=== PATIENT | female | born 1960 | race Caucasian/White ===

== ENCOUNTER → 2018-07-20 15:57 | Outpatient (CLI) | payer OTHER, SELFPAY ==
[2018-07-20 18:56] LABS: Absolute Lymphocyte Count 2.12 X10^3/ul (0.83-4.51); Absolute Neutrophil Count 6.2 X10^3/uL (2.0-7.7); Basophil# 0.04 X10^3/uL; Basophil% 0.4 % (0-1); Eosinophil# 0.18 X10^3/uL; Eosinophils% 1.9 % (0-5); Hematocrit 43.4 % (37-47); Lymphocyte # 2.12 X10^3/ul (4.0); Lymphocyte % 22.5 % (19-41); Mean Corp Hgb Conc 32.3 g/gl (32-36); Mean Corpuscular Hgb 29.5 pg (27.0-32.0); Mean Corpuscular Volume 91.4 fL (81-99); Monocyte# 0.89 X10^3/uL; Monocyte% 9.4 % (0-10); Neutrophil # 6.19 X10^3/uL (2.7-7.7); Neutrophil % 65.7 % (47-70); Platelet Count 233 K/mm3 (150-450); RBC Distribution Width SD 43.3 fl (35.1-43.9); Red Blood Count 4.75 M/mm3 (4.2-5.4); White Blood Count 9.4 K/mm3 (4.4-11.0)
[2018-07-20 19:08] LABS: Erythrocyte Sedimentation Rate 21 mm/hr (0-30); POSITIVE COUNT NO; POSITIVE DIFFERENTIAL NO; POSITIVE MORPHOLOGY NO
== END ==
PROVIDERS: Family Provider Family Medicine; PCP Family Medicine; Visit Provider Physician Assistant
DX: M17.11 Unilateral primary osteoarthritis, right knee (principal)
CPT/HCPCS: 36415; 85025; 85652; 86140

== ENCOUNTER → 2019-04-05 16:09 | Outpatient (CLI) | payer OTHER, SELFPAY ==
--- NOTE | 2019-04-05 16:14 | EKG12_ITS ---
Test Reason : PRE-OP Blood Pressure : / mmHG Vent. Rate : 095 BPM Atrial Rate : 095 BPM P-R Int : 154 ms QRS Dur : 082 ms QT Int : 340 ms P-R-T Axes : 056 -34 061 degrees QTc Int : 427 ms Normal sinus rhythm Possible Left atrial enlargement Left axis deviation Abnormal ECG Confirmed by ETHEL MCKAY ([id number]), art editor LANI GALLARDO ([id number]) on 04/09/2019 2:02:53 PM Referred By: Orly Lacey Confirmed By:ETHEL MCKAY
--- NOTE | 2019-04-05 16:29 | RAD_ITS ---
STUDY: X-RAY CHEST REASON FOR EXAM: Female, 59 years old. Preoperative TECHNIQUE: PA and lateral views the chest COMPARISON: None. FINDINGS: The lungs are clear. There is a left lower lobe granuloma. There are no pleural effusions. There is no pneumothorax. The heart is normal in size. The visualized osseous structures are within normal limits. RAD/Chest PA and Lateral IMPRESSION: No acute thoracic pathology. Left lower lobe granuloma. Electronically Signed: Caio Barba, at 16:57 EDT Tel , Service support ,
== END ==
PROVIDERS: Family Provider Family Medicine; PCP Family Medicine; Referring Provider Physician Assistant; Visit Provider Physician Assistant
DX: Z01.818 Encounter for other preprocedural examination (principal)
CPT/HCPCS: 71046; 93005

== ENCOUNTER → 2019-04-24 | Outpatient (CLI) | payer OTHER, SELFPAY ==
--- NOTE | 2019-04-24 13:44 | STEWCON_ITS ---
Reason For Study: PRE OP, ABN EKG Stress Results Protocol: Florian Protocol WITH DEFINITY Maximum Predicted HR: 161 bpm Target HR: 137 bpm % Maximum Predicted HR: 98 % DurationHeart Rate Stage (mm:ss) (bpm) BP Comment BASELINE 94 132/822.5 CC DEFINITY STAGE 1 3:00 127 160/88 STAGE 2 3:00 153 172/881 CC DEFINITY STAGE 3 0:15 157 / RECOVERY 97 126/783 CC DEFINITY Stress Duration: 6:15 mm:ss Maximum Stress HR: 157 bpm METS: 7 Baseline Echocardiogram Findings Stress Echo Wall motion Data Resting WM Intermediate WM Stress WM Resting Wall Motion Wall Motion Stress All segments Normal. All segments Hyperkinetic. Ejection Fraction 60 %. Ejection Fraction 70 %. Stress Results Heart rate response: Appropriate Blood pressure response to exercise: Normal resting BP-appropriate response Arrhythmias: Occasional PVC pretest, during exercise, and recovery Functional capacity: Average Stopped secondary to: Fear of falling. EKG Data The baseline ECG displays normal sinus rhythm. Exercise ECG: No obvious ECG changes. Symptoms with Stress No complaint of chest discomfort during exercise or recovery. Interpretation Summary Technically difficult study Contrast enhancement performed Negative (Adequate) Stress Echocardiogram Ordering Physician: Sasha^Fide^^^ Referring Physician: Fide Baez Performed By: Genevieve Blackmon, BERT
== END | disposition home or self-care (01) ==
LOC: CVS 13:43
PROVIDERS: Family Provider Family Medicine; PCP Family Medicine; Referring Provider Family Medicine; Visit Provider Family Medicine
DX: Z01.818 Encounter for other preprocedural examination (principal); R94.31 Abnormal electrocardiogram [ECG] [EKG]
CPT/HCPCS: 93017; 93350; Q9957; A4216; C8928

== ENCOUNTER → 2019-04-25 | Outpatient (CLI) | payer OTHER, SELFPAY ==
[2019-04-25 13:04] LABS: Absolute Lymphocyte Count 1.82 X10^3/ul (0.83-4.51); Absolute Neutrophil Count 4.2 X10^3/uL (2.0-7.7); Basophil# 0.03 X10^3/uL; Basophil% 0.4 % (0-1); Eosinophil# 0.17 X10^3/uL; Eosinophils% 2.4 % (0-5); Hematocrit 42.6 % (37-47); Hemoglobin 14.2 g/dl (12.0-15.0); Lymphocyte # 1.82 X10^3/ul (4.0); Lymphocyte % 25.7 % (19-41); Mean Corp Hgb Conc 33.3 g/gl (32-36); Mean Corpuscular Hgb 29.6 pg (27.0-32.0); Mean Corpuscular Volume 88.8 fL (81-99); Mean Platelet Vol. 10.2 fl (6.2-12.0); Monocyte# 0.83 X10^3/uL; Monocyte% 11.7 % (0-10); Neutrophil # 4.22 X10^3/uL (2.7-7.7); Neutrophil % 59.5 % (47-70); Platelet Count 225 K/mm3 (150-450); RBC Distribution Width SD 41.9 fl (35.1-43.9); White Blood Count 7.1 K/mm3 (4.4-11.0)
[2019-04-25 13:05] LABS: POSITIVE COUNT NO; POSITIVE DIFFERENTIAL NO; POSITIVE MORPHOLOGY NO
[2019-04-25 13:29] LABS: Vitamin B12 417 pg/mL (211-911)
[2019-04-25 13:39] LABS: Anion Gap 10 (5-15); BUN 18 mg/dL (7-18); BUN/Creat Ratio 25.5 RATIO (10-20); Calcium,Total 8.9 mg/dL (8.5-10.1); Chloride 106 mmol/L (98-107); EST Glomerular Filtration Rate 90 mL/min (>60); Est Glom Filt Rate - Afr Amer 109 mL/min (>60); Glucose 81 mg/dL (74-106); Potassium 3.7 mmol/L (3.5-5.1); Sodium Level 140 mmol/L (136-145); T4 Free Direct 1.21 ng/dL (0.76-1.46); Thyroid Stim Hormone (TSH) 1.44 uIU/mL (0.358-3.74)
== END | disposition home or self-care (01) ==
LOC: BFHLAB 10:20
PROVIDERS: Family Provider Family Medicine; PCP Family Medicine; Visit Provider Family Medicine
DX: Z01.818 Encounter for other preprocedural examination (principal); R41.3 Other amnesia
CPT/HCPCS: 36415; 80048; 82607; 84439; 84443; 85025

== ENCOUNTER → 2019-05-23 | Outpatient (CLI) | payer OTHER, SELFPAY | END | disposition home or self-care (01) | LOC: LABSPEC 15:46 | PROVIDERS: Family Provider Family Medicine; PCP Family Medicine; Referring Provider Otolaryngology Otolaryngology/Facial Plastic Surgery; Visit Provider Otolaryngology Otolaryngology/Facial Plastic Surgery | DX: J02.9 Acute pharyngitis, unspecified (principal) | CPT/HCPCS: 87070 ==

== ENCOUNTER → 2019-06-08 | Outpatient (CLI) | payer OTHER, SELFPAY ==
[2019-06-08 17:32] LABS: Hematocrit 42.7 % (37-47); Hemoglobin 14.3 g/dl (12.0-15.0); Mean Corp Hgb Conc 33.5 g/gl (32-36); Mean Corpuscular Volume 89.5 fL (81-99); Mean Platelet Vol. 10.5 fl (6.2-12.0); Platelet Count 228 K/mm3 (150-450); RBC Distribution Width SD 42.3 fl (35.1-43.9); Red Blood Count 4.77 M/mm3 (4.2-5.4); White Blood Count 9.4 K/mm3 (4.4-11.0)
[2019-06-08 17:33] LABS: Scan Indicated on CBC? Y/N NO
[2019-06-08 18:17] LABS: Anion Gap 5 (5-15); BUN 18 mg/dL (7-18); BUN/Creat Ratio 22.3 RATIO (10-20); Calcium,Total 9.1 mg/dL (8.5-10.1); Chloride 107 mmol/L (98-107); Creatinine, Serum 0.81 mg/dL (0.55-1.02); EST Glomerular Filtration Rate 77 mL/min (>60); Est Glom Filt Rate - Afr Amer 93 mL/min (>60); Glucose 91 mg/dL (74-106); Potassium 4.2 mmol/L (3.5-5.1); Sodium Level 140 mmol/L (136-145)
== END | disposition home or self-care (01) ==
LOC: LAB 16:39
PROVIDERS: Family Provider Family Medicine; PCP Family Medicine; Referring Provider Physician Assistant; Visit Provider Physician Assistant
DX: Z01.818 Encounter for other preprocedural examination (principal)
CPT/HCPCS: 36415; 80048; 85027

== ENCOUNTER → 2019-06-15 | Outpatient (CLI) | payer OTHER, SELFPAY ==
--- NOTE | 2019-06-15 | KNEE_PTH ---
PATIENT: SHAUN TIRADO [facility] U#:[id number] AGE/SX: 59/F ROOM: RE06/15/[address]: Dr. Jarvis Soni MD : 1960 BED: DIS: 06/15/2019 SPEC #: [id number] RECD: 06/15/19 15:22 STATUS: VIANCA REMarcell #: [id number] KEYANA: 06/15/19 00:[address]: Jarvis Soni DEPT: SURGICAL PATHOLOGY RECD BY: Darien Villafuerte ENTERED: 06/18/19 08:03 SP TYPE: TOTAL KNEE OTHR DR: Dr. Marino Vital MD [facility] Tissues: Knee, NOS Procedures: Decalcification bone/plaque Surgery Specimen Level IV HEADER OPERATION: Right knee total arthroplasty PRE-OP DIAGNOSIS: Posttraumatic arthritis right knee TISSUE SUBMITTED: Right knee bone MICROSCOPIC DIAGNOSIS Right knee bone, total knee arthroplasty: Pieces of bone with degenerative osteoarthritic changes. Fragments of fibrocartilage and reactive synovial tissue. ADWOA:cally 06/21/19 MICROSCOPIC DESCRIPTION Slides are reviewed. GROSS DESCRIPTION Received is one container designated bone right knee. The specimen consists of multiple fragments of guillaume-yellow bone measuring in aggregate 11 x 10 x 3.5 cm. Two indurated pieces of cartilaginous tissue are noted measuring in aggregate 6 x 2.5 x 1 cm. A number of bony fragments contain articular surfaces consistent with tibial plateau and femoral condyle and displaying prominent osteophyte formation, eburnation, and bone erosion. Self Propelled Hot Mix Roller Operator sections are submitted in two cassettes as follows: 1 - indurated piece of tissue, 2 - bone after decalcification. / ADWOA:cally 06/18/19 TC:5 [facility]: [id number], [id number]
== END | disposition home or self-care (01) ==
LOC: LABSPEC 15:50
PROVIDERS: Family Provider Family Medicine; PCP Family Medicine; Referring Provider Orthopaedic Surgery; Visit Provider Orthopaedic Surgery
DX: M17.31 Unilateral post-traumatic osteoarthritis, right knee (principal)
CPT/HCPCS: 88305; 88311

== ENCOUNTER → 2021-03-03 10:43 | Outpatient (CLI) | payer OTHER, SELFPAY ==
[2021-03-03 10:14] VITALS: BMI 34.0
--- NOTE | 2021-03-03 10:45 | BI_ITS ---
MAMMOGRAPHY - BILATERAL SCREENING 3-D TOMOSYNTHESIS REASON FOR EXAM: Female, 61 years old. Routine screening PERTINENT HISTORY: No significant family history. TECHNIQUE: 2-D mammograms and 3-D Tomosynthesis of the breast (s) were performed. CAD was performed. COMPARISON: 10/14/2017 FINDINGS: The breast composition is heterogeneously dense that can obscure small breast masses. Scattered benign calcifications are seen. No dense spiculated masses or suspicious microcalcifications are identified. No architectural distortion is identified. There is no skin thickening or retraction. There has been no significant change since the prior study. BI/SCRN MAMM (CAD)W/GISELLE BILAT IMPRESSION: No mammographic signs of malignancy. Routine yearly mammograms recommended. ASSESSMENT CATEGORY: BIRADS Category 2: Benign. A letter regarding these results will be sent to the patient by the facility within 30 days. FOLLOW UP RECOMMENDATION: Yearly follow up mammogram recommended. (A) Approximately 10% of breast cancers are not detected by mammography. A normal mammogram should not delay biopsy of a clinically suspicious abnormality. Electronically Signed: Lizandro Saba MD at 12:04 EDT , Service support ,
[2021-03-07 08:59] LABS: HPV APTIMA, High Risk Negative (Negative)
== END ==
PROVIDERS: PCP Family Medicine; Referring Provider Nurse Practitioner Women's Health; Visit Provider Nurse Practitioner Women's Health
DX: Z12.31 Encounter for screening mammogram for malignant neoplasm of breast (principal); Z12.4 Encounter for screening for malignant neoplasm of cervix
CPT/HCPCS: 77063; 77067; 87624; 88175; G0145

== ENCOUNTER → 2021-04-21 15:08 | Outpatient (CLI) | payer OTHER, SELFPAY ==
[2021-03-03 10:14] VITALS: BMI 34.0
[2021-04-20 16:25] LABS: Creatinine, Serum 0.77 mg/dL (0.55-1.02); EST Glomerular Filtration Rate 81 mL/min (>60); Est Glom Filt Rate - Afr Amer 98 mL/min (>60)
--- NOTE | 2021-04-21 15:38 | EKG12_ITS ---
Test Reason : PREOP Blood Pressure : / mmHG Vent. Rate : 094 BPM Atrial Rate : 094 BPM P-R Int : 150 ms QRS Dur : 082 ms QT Int : 338 ms P-R-T Axes : 048 -28 050 degrees QTc Int : 422 ms Normal sinus rhythm Poor R wave progression Nonspecific T wave abnormality Confirmed by NICOLE GONZALES, SHADE ([id number]), newspaper or periodical editor LANI GALLARDO ([id number]) on 04/22/2021 9:34:12 AM Referred By: Donnie Silverman Confirmed By:SHADE RIVERA MD
--- NOTE | 2021-04-21 15:40 | CT_ITS ---
STUDY: LEFT LOWER EXTREMITY CT SCAN REASON FOR EXAM: Female, 61 years old. VARUS DEFORMITY RADIATION DOSAGE (If Supplied By Facility): CTDIvol = ( 18.73 ) mGy, DLP = ( 1221.33 ) mGycm. Individualized dose optimization techniques were used for this CT.? TECHNIQUE: Axial multidetector CT scan of the left lower extremity. Coronal and sagittal reformatted images. COMPARISON: None. FINDINGS: Left hip: Mild left hip osteoarthritis with mild/moderate productive changes. Mild pubic symphysis arthrosis. Spurring at the greater trochanter. Colonic diverticulosis. Otherwise normal visualized intra-abdominal/pelvic contents. No acute fracture, dislocation or osseous destruction. Left knee: Severe medial compartment arthrosis. Mild lateral compartment arthrosis. Moderate patellofemoral arthrosis. Moderate volume joint effusion. Small popliteal cyst. Mild swelling. No acute fracture, dislocation or osseous destruction. Left ankle: Plantar spur. Achilles enthesophyte. Mild left ankle osteoarthritis. No acute fracture, dislocation or osseous destruction. CT/Extremity Lower without Contra IMPRESSION: Left knee tricompartmental osteoarthritis predominating medially Left knee moderate volume joint effusion, small popliteal cyst and mild swelling Mild left hip and ankle osteoarthritis Electronically Signed: Ramirez Acharya DO at 9:18 EDT Tel , Service support ,
[2021-04-21 15:48] LABS: Absolute Neutrophil Count 4.3 X10^3/uL (2.0-7.7); Basophil# 0.07 X10^3/uL; Basophil% 0.8 % (0-1); Eosinophil# 0.31 X10^3/uL; Eosinophils% 3.7 % (0-5); Hematocrit 42.4 % (37-47); Lymphocyte % 32.5 % (19-41); Mean Corpuscular Hgb 29.7 pg (27.0-32.0); Mean Platelet Vol. 10.1 fl (6.2-12.0); Monocyte# 0.94 X10^3/uL; Monocyte% 11.3 % (0-10); NRBC Flagged by Analyzer 0 % (0-5); Neutrophil # 4.26 X10^3/uL (2.7-7.7); Neutrophil % 51.3 % (47-70); Platelet Count 243 K/mm3 (150-450); RBC Distribution Width CV 12.3 % (11.6-14.6); RBC Distribution Width SD 40.5 fl (35.1-43.9); Red Blood Count 4.71 M/mm3 (4.2-5.4); White Blood Count 8.3 K/mm3 (4.4-11.0)
--- NOTE | 2021-04-21 15:50 | RAD_ITS ---
STUDY: X-RAY CHEST REASON FOR EXAM: Female, 61 years old. PRE OP TECHNIQUE: Frontal and lateral views COMPARISON: 04/15/2019. FINDINGS: The lungs are expanded. Stable left lower lobe parenchymal nodule likely granuloma. Normal size heart. Normal mediastinum and mauricio. Normal visualized pulmonary arteries. Normal visualized aortic arch and descending thoracic aorta. Degenerative changes of the thoracic spine. Normal visualized ribs, clavicles, and shoulders. There is no demonstrated abnormality of the visualized soft tissue structures of the upper abdomen. RAD/Chest PA and Lateral IMPRESSION: No acute pathology of the chest. Electronically Signed: Dominik Woodward DO at 16:05 EDT Tel [phone], Service support ,
[2021-04-21 16:52] LABS: Anion Gap 5 (5-15); BUN 23 mg/dL (7-18); Chloride 108 mmol/L (98-107); Creatinine, Serum 0.92 mg/dL (0.55-1.02); EST Glomerular Filtration Rate 66 mL/min (>60); Est Glom Filt Rate - Afr Amer 80 mL/min (>60); Glucose 136 mg/dL (74-106); Potassium 3.8 mmol/L (3.5-5.1); Sodium Level 139 mmol/L (136-145)
== END ==
PROVIDERS: PCP Family Medicine; Referring Provider Specialist; Visit Provider Specialist
DX: Z01.818 Encounter for other preprocedural examination (principal); M21.162 Varus deformity, not elsewhere classified, left knee
CPT/HCPCS: 36415; 71046; 73700; 80048; 82565; 85025; 93005

== ENCOUNTER 2021-05-22 16:51 | Observation (INO) | payer OTHER, SELFPAY ==
[2021-03-03 10:14] VITALS: BMI 34.0
[2021-05-22 16:28] VITALS: O2SAT 95; BMI 37.9
--- NOTE | 2021-05-22 16:51 | CT_ITS ---
STUDY: CTA CHEST REASON FOR EXAM: Female, 61 years old. sob s/p tka RADIATION DOSAGE (If Supplied By Facility): CTDIvol = ( 11.47 ) mGy, DLP = ( 488.01 ) mGycm TECHNIQUE: The examination was performed with the intravenous administration of IV 100mL Isovue-370. Post-processing of the angiographic images was performed, with multiplanar reformation and 3D reconstruction. Individualized dose optimization techniques were used for this CT. COMPARISON: None. FINDINGS: Normal enhancement of the main pulmonary artery and right and left pulmonary arteries. Normal enhancement of the bilateral peripheral pulmonary arteries. There is no demonstrated pulmonary embolism. Normal thoracic aorta and visualized great vessels. There is no demonstrated aortic dissection. Normal heart and pericardium. Normal mediastinum. Normal hilar regions. Normal visualized trachea and bronchi. The lungs are well expanded. Some dependent bibasilar atelectasis. Patchy groundglass opacities in the central upper lobes consistent with subsegmental atelectasis, pneumonitis, or pulmonary edema. 8 mm fat-containing nodule in the left lower lobe lungs on image 104 consistent with a pulmonary hamartoma. Normal pleura. Normal chest wall structures. Normal osseous structures. Normal visualized upper abdomen. CT/CTA Chest W/WO Contrast IMPRESSION: 1. No CT evidence of pulmonary embolism. 2. Bilateral subsegmental atelectasis, pneumonitis, pulmonary edema. Imaging features can be seen with Covid 19 pneumonia, though are nonspecific and can occur with a variety of infectious and noninfectious processes. Electronically Signed: Steve Marcelo MD at 18:44 EDT Tel , Service support ,
--- NOTE | 2021-05-22 16:52 | RAD_ITS ---
STUDY: X-RAY - LEFT KNEE REASON FOR EXAM: Female, 61 years old. post op -- AP and Lateral xray of operative knee in PACU TECHNIQUE: 2 view(s) of the knee. COMPARISON: 09/14/2017 FINDINGS: Normal visualized distal femur. Normal visualized proximal tibia and fibula. Normal proximal tibiofibular articulation. Status post recent total knee arthroplasty with skin marissa and subcutaneous emphysema.. The soft tissue structures are unremarkable. RAD/Knee 1 or 2 Views IMPRESSION: Status post recent total knee arthroplasty. Electronically Signed: Steve Marcelo MD at 18:57 EDT Tel , Service support ,
--- NOTE | 2021-05-22 16:54 | PCM.HP.STD ---
HPI - General General Date of Admission: 05/22/21 HPI Narrative SHAUN ROBERSON, is a 61 F who presents with decreased oxygen saturation and increased fevers status post left total knee replacement today. Patient was in otherwise healthy female who qualified for outpatient total knee replacement. Her total knee was done today at [facility]. There were no intraoperative complications with the surgery however towards the end of the procedure the patient did develop decreased oxygenation on her monitor. She also had some associated spasming as noted by anesthesia. She was monitored closely in the postoperative area. Her decreased oxygenation did somewhat resolve with albuterol and oxygen supplementation. However she was not able to obtain a satisfactory oxygenation level postoperatively. She also developed significant fevers postoperatively as high as 100.8. Based on this and anesthesia recommendation we have elected to admit her to the hospital. [facility] Medical History (Updated 05/22/21 @ 17:[address] Jb Banegas MD) Anxiety and depression delivery delivered Home Medications sertraline 100 mg tablet 100 mg PO DAILY 03/03/21 [History Last Taken Unknown] Allergy/AdvReac Type Severity Reaction Status Date / Time Sulfa (Sulfonamide Allergy Intermediate rash Verified 03/03/21 10:15 Antibiotics) Family History (Updated 03/03/21 @ 10:17 by Kely Reeder) Father Diabetes Heart disease Surgical History (Updated 05/22/21 @ 17:[address] 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 Otherwise 14 point review systems is negative.. Vital Signs Vital Signs Vital Signs: Weight Weight: 214 lb 2 oz Body Mass Index (BMI) 37.9 Physical Exam Narrative Patient is alert and oriented. Extremity Extremity Narrative: Left lower extremity: Dressing is clean dry and intact Sensations intact to light touch saphenous, sural, superficial peroneal, deep peroneal, and tibial distributions Motors intact EHL, DF, PF calves are soft and supple Assessment & Plan Assessment/Plan (1) Shortness of breath: PLAN: Based on patient's development of fevers and shortness of breath intraoperatively patient was transferred to the hospital for oxygen supplementation and to rule out a emboli. Knee replacement can be associated with fatty emboli as well as pulmonary emboli. We did not instrument her femoral or tibial canal however her symptoms warrant further investigation. CT angiogram was performed. Patient does not demonstrate emboli. She does have some pneumonitis and some atelectasis as well as fluid. Radiology states this could be consistent with some Covid pneumonia. She did have vaccination. Medicine is ordered Covid testing. We will follow this. She is doing well sitting up in her bed not requiring oxygen at this time. I have recommended we do overnight pulse ox monitoring consistently in order to evaluate her overnight. If she does well she will likely be able to be discharged tomorrow. (2) History of total knee arthroplasty: PLAN: Patient surgery went uneventfully. She will be monitored overnight. Will consult medicine. We will stick with standard postop pain regimen. We will begin physical therapy tomorrow.
--- NOTE | 2021-05-22 17:35 | EKG12_ITS ---
Test Reason : SHORTNESS OF BREATH Blood Pressure : / mmHG Vent. Rate : 104 BPM Atrial Rate : 104 BPM P-R Int : 132 ms QRS Dur : 088 ms QT Int : 314 ms P-R-T Axes : 015 -20 023 degrees QTc Int : 412 ms Sinus tachycardia Nonspecific T wave abnormality Abnormal ECG When compared with ECG of 21-APR-2021 15:44, No significant change was found Confirmed by AVINASH GONZALES, KETAN ([id number]), writer editor LANI GALLARDO ([id number]) on 05/26/2021 9:21:36 AM Referred By: MARCELINA Confirmed By:KETAN DA SILVA MD
[2021-05-22 17:46] LABS: CREATININE FINGERSTICK 0.8 mg/dL (0.55-1.02); EGFR FINGERSTICK > 60.0000 mL/min (>60)
--- NOTE | 2021-05-22 17:50 | PCM.PN.HOSP ---
Subjective Subjective This is a 61 years old female patient underwent elective left total knee replacement today and postoperatively, she was found to have hypoxia and her oxygen saturation decreased and also reportedly, she developed fever. I was asked to see the patient for medical management. Patient was seen and examined. Currently, she denies any chest pain or shortness of breath. She denied fever or chills. Her left knee pain is manageable. She has no past medical history apart from depression. Currently, hypertension stable, pulse ox is 95% on room air. Objective Data Objective Data Vital Signs: Vital Signs Pulse Ox 95 05/22/21 16:28 Oxygen Delivery Method Room Air Weight: 214 lb 2 oz Body Mass Index (BMI) 37.9 Lab / Micro Data Labs: Laboratory Results - last 24 hr 05/22/21 17:41 POC Creatinine 0.8 POC Estimated GFR (eGFR) > 60.0000 Physical Exam Const alert, oriented x3, no apparent distress and no limitations General Appearance: cooperative HEENT normocephalic, head/scalp atraumatic, external ears normal, external nose normal and moist oral mucous membranes Head and Scalp: normocephalic Eyes PERRL, EOMs intact bilaterally, conjunctivae normal and no scleral icterus General Eye: normal appearance of both eyes Neck no lymphadenopathy, supple, no meningeal signs, no JVD and no carotid bruits Lymph Lymphatic: no lymphadenopathy noted Resp normal respiratory effort, normal air movement and clear to auscultation bilaterally Auscultation: Negative for crackles, rales, rhonchi or wheezes Cardio regular rate, regular rhythm, S1 normal heart sound, S2 normal heart sound, no murmurs and no JVD GI normal to inspection, nondistended, normoactive bowel sounds, soft to palpation, non-tender and non-distended; Negative for hepatosplenomegaly Extremity normal to inspection, full ROM and no clubbing, cyanosis or edema Skin no rashes or lesions noted, no wounds and no petechiae Neuro oriented x3, CN's II-XII intact bilaterally and moves all extremities Sensorium / Orientation: alert Speech: speech normal Motor Exam: strength 5/5 throughout Psych mental status grossly normal, affect normal and denies hallucinations Assessment & Plan Assessment/Plan (1) Hypoxia: (2) Status post left knee replacement: (3) Depression: PLAN: This is a 61 years old female patient underwent elective left total knee replacement today and postoperatively, she did with hypoxia and reported fever and she was admitted for observation. #1 postoperative hypoxia/reported fever: Currently, patient is afebrile, pulse ox is 95% on room air. She denied any chest pain or shortness of breath. CTA chest was ordered and currently, it is being done. Plan: O2 by nasal cannula if needed, awaiting CTA chest results, EKG, incentive spirometer, gentle IV fluids after patient received IV contrast, repeat CBC and BMP tomorrow morning. #2 status post left total knee replacement: She is on IV cefazolin for perioperative prophylaxis, on IV morphine and OxyIR as needed for pain. Plan to start her on Xarelto for DVT (tomorrow. Orthopedic surgery on the case. #3 depression: Continue sertraline. #4 DVT prophylaxis: SCDs. This note was generated with [employer] dictation software. It may contain incorrect words, spelling, and punctuation that were not noted in checking the note before signing. Charges/Coding Visit Charges Inpatient E&M: 61189 Subs Hosp L2
[2021-05-22] MEDS: Ensure Surgery 237 ML LIQUID PO (17:58)
[2021-05-22] MEDS: 0.9% Normal Saline 1,000 ML 100 ML IV (18:04)
[2021-05-22 18:17] VITALS: BP 125/65; PULSE 100; RESP 16; TEMP 36.6; O2SAT 92
[2021-05-22] MEDS: Furosemide 20 MG/2 ML VIAL IV (19:11)
[2021-05-22 20:30] LABS: Probe Check PASS; Specimen Processing Control PASS
[2021-05-22 20:51] LABS: BNP,B-Type NATRIURETIC PEPTIDE 97.7 pg/mL (0-100)
[2021-05-22] MEDS: Senna/Docusate Sodium 1 Tablet 2 TABLET PO (21:04)
[2021-05-22] MEDS: oxyCODONE 5 MG Tablet PO (21:04)
[2021-05-22] MEDS: Cefazolin 1 GM/50 ML BAG IV (21:04)
[2021-05-22] MEDS: Acetaminophen 500 MG Tablet 1000 MG PO (21:05)
[2021-05-22 23:00] VITALS: BP 145/67; PULSE 98; RESP 18; TEMP 37.1; O2SAT 93
[2021-05-23 05:00] VITALS: BP 147/81; PULSE 94; RESP 16; TEMP 36.8; O2SAT 93
[2021-05-23] MEDS: Acetaminophen 500 MG Tablet 1000 MG PO (05:16)
[2021-05-23] MEDS: Cefazolin 1 GM/50 ML BAG IV (05:17)
[2021-05-23] MEDS: Rivaroxaban 10 MG Tablet PO (05:17)
[2021-05-23 06:19] LABS: Hemoglobin 12.4 g/dL (12.0-15.0); Mean Corp Hgb Conc 32.6 g/dL (32-36); Mean Corpuscular Hgb 30.2 pg (27.0-32.0); Mean Corpuscular Volume 92.7 fL (81-99); Mean Platelet Vol. 10.4 fl (6.2-12.0); Platelet Count 194 K/mm3 (150-450); RBC Distribution Width CV 13.1 % (11.6-14.6); RBC Distribution Width SD 44.6 fl (35.1-43.9); White Blood Count 14.1 K/mm3 (4.4-11.0)
[2021-05-23 06:59] LABS: Anion Gap 8 (5-15); BUN 18 mg/dL (7-18); BUN/Creat Ratio 22.6 RATIO (10-20); Chloride 108 mmol/L (98-107); EST Glomerular Filtration Rate 78 mL/min (>60); Est Glom Filt Rate - Afr Amer 94 mL/min (>60); Estimated Creatinine Clearance 61.09 ml/min; Glucose 122 mg/dL (74-106); Sodium Level 141 mmol/L (136-145)
[2021-05-23] MEDS: Ensure Surgery 237 ML LIQUID PO (08:09)
[2021-05-23] MEDS: Senna/Docusate Sodium 1 Tablet 2 TABLET PO (08:12)
[2021-05-23] MEDS: Famotidine 20 MG Tablet PO (08:12)
[2021-05-23] MEDS: Sertraline 100 MG Tablet PO (08:12)
[2021-05-23 08:16] VITALS: O2SAT 94
--- NOTE | 2021-05-23 09:50 | PCM.PN.HOSP ---
Subjective Subjective Doing well, has some pain in her left knee but otherwise breathing okay. She uses her incentive spirometer very well and I was able to ambulate her around the nursing unit and and she did not require any oxygen with ambulation. She denied any shortness of breath mostly her concern was her knee pain. I have encouraged her to continue with long walks as well as her incentive spirometer. Objective Data Objective Data Vital Signs: Vital Signs Temp Pulse Resp BP Pulse Ox 98.3 F 94 16 147/81 H 94 05/23/21 05:00 05/23/21 05:00 05/23/21 05:00 05/23/21 05:00 05/23/21 08:16 Oxygen Delivery Method Room Air Weight: 214 lb 1.983 oz Body Mass Index (BMI) 37.9 Intake & Output: Intake and Output for Last 24 Hours 05/22/21 05/23/21 05/24/21 03:59 03:59 03:59 Intake Total 150 / 150 650 / 650 Output Total 400 / 400 Balance -250 / -250 650 / 650 Lab / Micro Data Result Diagrams: 05/23/21 05:24 05/23/21 05:24 Labs: Laboratory Results - last 24 hr 05/22/21 05/22/21 05/22/21 17:41 19:10 20:16 WBC RBC Hgb Hct MCV MCH MCHC RDW Std Deviation RDW Coeff of Honey Plt Count MPV Sodium Potassium Chloride Carbon Dioxide Anion Gap BUN Creatinine POC Creatinine 0.8 Estim Creat Clear Calc POC Estimated GFR (eGFR) > 60.0000 Est GFR (MDRD) Af Amer Est GFR (MDRD) Non-Af BUN/Creatinine Ratio Glucose Calcium B-Natriuretic Peptide 97.7 COVID-19 (EZEQUIEL) Negative 05/23/21 05/23/21 05:24 05:24 WBC 14.1 H RBC 4.10 L Hgb 12.4 Hct 38.0 MCV 92.7 MCH 30.2 MCHC 32.6 RDW Std Deviation 44.6 H RDW Coeff of Honey 13.1 Plt Count 194 MPV 10.4 Sodium 141 Potassium 4.0 Chloride 108 H Carbon Dioxide 25.0 Anion Gap 8 BUN 18 Creatinine 0.80 POC Creatinine Estim Creat Clear Calc 61.09 POC Estimated GFR (eGFR) Est GFR (MDRD) Af Amer 94 Est GFR (MDRD) Non-Af 78 BUN/Creatinine Ratio 22.6 H Glucose 122 H Calcium 9.0 B-Natriuretic Peptide COVID-19 (EZEQUIEL) Radiography Diagnostic Testing: Radiology Impression Chest CTA 05/22/21 16:51 IMPRESSION: 1. No CT evidence of pulmonary embolism. 2. Bilateral subsegmental atelectasis, pneumonitis, pulmonary edema. Imaging features can be seen with Covid 19 pneumonia, though are nonspecific and can occur with a variety of infectious and noninfectious processes. Electronically Signed: Steve Marcelo MD at 18:44 EDT Tel , Service support , Knee X-Ray 05/22/21 16:52 IMPRESSION: Status post recent total knee arthroplasty. Electronically Signed: Steve Marcelo MD at 18:57 EDT Tel , Service support , Physical Exam Const alert, oriented x3 and no apparent distress General Appearance: cooperative HEENT normocephalic and moist oral mucous membranes Eyes PERRL, EOMs intact bilaterally and conjunctivae normal General Eye: normal appearance of both eyes Neck supple and no JVD Lymph Lymphatic: no lymphadenopathy noted Resp normal respiratory effort, no retractions, no use of accessory muscles and clear to auscultation bilaterally Auscultation: diminished lung sounds bilateral lower; Negative for crackles, rales, rhonchi or wheezes Cardio regular rate, regular rhythm, S1 normal heart sound, S2 normal heart sound and no murmurs GI soft to palpation, non-tender and non-distended; Negative for hepatosplenomegaly Extremity no clubbing, cyanosis or edema Skin no rashes or lesions noted Skin Narrative: Incision CDI Neuro no focal motor deficits and no sensory deficits noted Sensorium / Orientation: alert Speech: speech normal Motor Exam: strength 5/5 throughout Psych affect normal Appearance: appropriate Assessment & Plan Assessment/Plan (1) Hypoxia: (2) Status post left knee replacement: (3) Depression: PLAN: 1. Postoperative hypoxia status post left TKA 05/22/2021 -CT scan had some groundglass opacities bilaterally consistent with atelectasis and edema -She was fully vaccinated for Covid over 3 months ago and her Covid test was negative -She has no longer febrile, her white count is slightly elevated reactive to surgery -Did not need oxygen with ambulation -Encouraged incentive spirometer -Okay for discharge from medical perspective -Continue with DVT prophylaxis and perioperative prophylaxis per primary 2. Depression -Stable -Continue with Zoloft DVT: Xarelto Charges/Coding Visit Charges OBSV E&M: 83821 Subsequent observation care L2
--- NOTE | 2021-05-23 10:17 | PCM.PN.ORT ---
Subjective Subjective Patient was transferred yesterday after total knee replacement at the surgery center for decreased oxygenation. She stabilized quickly. CTA revealed no evidence of emboli. Covid test was negative despite some concerning atelectasis and pneumonitis on CT scan. She has had no shortness of breath overnight. She is breathing and oxygenating well on room air at this time. No calf pain. She did therapy this morning without any issues therapist were happy with her progress. Objective Data Objective Data Vital Signs: Vital Signs Temp Pulse Resp BP Pulse Ox 98.3 F 94 16 147/81 H 94 05/23/21 05:00 05/23/21 05:00 05/23/21 05:00 05/23/21 05:00 05/23/21 08:16 Oxygen Delivery Method Room Air Weight: 214 lb 1.983 oz Body Mass Index (BMI) 37.9 Intake & Output: Intake and Output for Last 24 Hours 05/21/21 05/22/21 05/23/21 23:59 23:59 23:59 Intake Total 150 / 150 650 / 650 Output Total 400 / 400 Balance 150 / 150 250 / 250 Lab / Micro Data Result Diagrams: 05/23/21 05:24 05/23/21 05:24 Labs: Laboratory Results - last 24 hr 05/22/21 05/22/21 05/22/21 17:41 19:10 20:16 WBC RBC Hgb Hct MCV MCH MCHC RDW Std Deviation RDW Coeff of Honey Plt Count MPV Sodium Potassium Chloride Carbon Dioxide Anion Gap BUN Creatinine POC Creatinine 0.8 Estim Creat Clear Calc POC Estimated GFR (eGFR) > 60.0000 Est GFR (MDRD) Af Amer Est GFR (MDRD) Non-Af BUN/Creatinine Ratio Glucose Calcium B-Natriuretic Peptide 97.7 COVID-19 (EZEQUIEL) Negative 05/23/21 05/23/21 05:24 05:24 WBC 14.1 H RBC 4.10 L Hgb 12.4 Hct 38.0 MCV 92.7 MCH 30.2 MCHC 32.6 RDW Std Deviation 44.6 H RDW Coeff of Honey 13.1 Plt Count 194 MPV 10.4 Sodium 141 Potassium 4.0 Chloride 108 H Carbon Dioxide 25.0 Anion Gap 8 BUN 18 Creatinine 0.80 POC Creatinine Estim Creat Clear Calc 61.09 POC Estimated GFR (eGFR) Est GFR (MDRD) Af Amer 94 Est GFR (MDRD) Non-Af 78 BUN/Creatinine Ratio 22.6 H Glucose 122 H Calcium 9.0 B-Natriuretic Peptide COVID-19 (EZEQUIEL) Radiography Diagnostic Testing: Radiology Impression Chest CTA 05/22/21 16:[address]: 1[address] evidence of pulmonary embolism. 2. Bilateral subsegmental atelectasis, pneumonitis, pulmonary edema. Imaging features can be seen with Covid 19 pneumonia, though are nonspecific and can occur with a variety of infectious and noninfectious processes. Electronically Signed: Steve Marcelo MD at 18:44 EDT Tel , Service support , Knee X-Ray 05/22/21 16:52 IMPRESSION: Status post recent total knee arthroplasty. Electronically Signed: Steve Marcelo MD at 18:57 EDT Tel , Service support , Physical Exam Const alert, oriented x3 and no apparent distress Extremity Extremity Narrative: Left lower extremity: Dressing is clean dry and intact Sensations intact to light touch saphenous, sural, superficial peroneal, deep peroneal, and tibial distributions Motors intact EHL, DF, PF calves are soft and supple Assessment & Plan Assessment/Plan (1) Hypoxia: PLAN: Patient's hypoxia has resolved. At this time she does not require oxygen with ambulation. She is done well with physical therapy. Medicine did check a COVID-19 test which was negative. She is been appropriately vaccinated. She is been cleared for discharge from medicine. (2) Status post left knee replacement: PLAN: Pain control: Continue current regimen pain well controlled at this time DVT prophylaxis: Patient was placed on Xarelto as we ruled out a PE. At this time she will be discharged home on her baby aspirin twice a day as planned preoperatively. Leukocytosis: Reactive from intraoperative steroids Therapy: Patient did well with therapy this morning continue with weightbearing as tolerated, range of motion as tolerated. First therapy visit is arranged for May 25. Disposition: Patient has done well and stabilized overnight. Oxygenating well. This time we will plan to discharge her home. She has her medications from her preoperative visit.
--- NOTE | 2021-05-23 10:20 | PCM.DC ---
Discharge Instructions Diet Discharge Diet: No restrictions Activity Discharge Activity: May Not Drive May shower in (days): 2 Ice area for (Minutes): 20 (every hour while awake.) Weight Bearing Status: Weight bearing as tolerated Keep extremity elevated above heart level: Operative Extremity Additional Activity Instructions:: Wear elastic stockings for 2 weeks after your surgery. Dressing / Incision Call your doctor if your incision/area has: Continuous Slow Oozing, Sudden Increased Bleeding, Increased Pain/ Swelling, Increased Redness and Foul Smelling Discharge Call your doctor if you observe: Fever of 101 or Higher, Coldness, Increased Pain, Numbness or Tingling, Change in Color, Calf discomfort and Uncontrolled pain Additional Dressing/Incision Instructions:: If incision is clean dry and intact may leave the wound open to air and continue showering. If there is continued drainage continue daily dry dressing changes and keep incision clean dry and intact until there is no drainage. Follow Up Care Test Results: Test results from this visit will be discussed in further detail at your follow-up appointment, if applicable. Discharge Plan Admission Admit Date/Time: 05/22/21 16:51 Attending Provider: Stevie Pitt Primary Care Provider: Marino Vital Consulting Providers: Jb Banegas Discharge Orders/Prescriptions Prescriptions: No Action sertraline [Zoloft] 100 mg tablet 100 mg PO DAILY RF: 0 Disposition Discharge Orders: Discharge Patient (Routine); Ordered 05/23/21 Ordered By: Dr. Donnie Silverman
[2021-05-23 10:33] VITALS: BP 151/78; PULSE 103; RESP 18; TEMP 36.9; O2SAT 96
== END 2021-05-23 12:17 | disposition home or self-care (01) ==
PROVIDERS: Hospitalist; Admitting Provider Specialist; PCP Family Medicine; Visit Provider Family Medicine
DX: R09.02 Hypoxemia (principal); Z96.653 Presence of artificial knee joint, bilateral; Z98.890 Other specified postprocedural states; F32.9 Major depressive disorder, single episode, unspecified; F41.9 Anxiety disorder, unspecified; Z79.899 Other long term (current) drug therapy; Z87.891 Personal history of nicotine dependence
CPT/HCPCS: 36415; 71275; 73560; 80048; 83880; 85027; 87635; 93005; 96361; 96365; 96366; 96375; 97161; 97165; 97802; 99218; 99251; J7030; Q9967; U0005; G0378; G0379; G0463; J1940; U0003

== ENCOUNTER → 2022-07-09 | Outpatient (CLI) | payer OTHER, SELFPAY ==
--- NOTE | 2022-07-09 12:48 | BI_ITS ---
MAMMOGRAPHY - BILATERAL SCREENING REASON FOR EXAM: Female, 62 years old. Routine annual screening examination. PERTINENT HISTORY: Non-contributory. TECHNIQUE: Digital bilateral breast giselle (3D mammographic acquisition) in the CC and MLO projections. 2-D mediolateral oblique (MLO) and craniocaudad (CC) views of both breasts were obtained. CAD: Full Field Digital Mammography with Computer Added Detection was performed. COMPARISON: Mammogram from 03/03/2021, 10/14/2017. FINDINGS: Breast Composition: The breasts are heterogeneously dense, which may obscure small masses. There are no dominant masses or suspicious calcifications. No other significant abnormalities are identified. There has been no significant change since the prior study. BI/SCRN MAMM (CAD)W/GISELLE BILAT IMPRESSION: Stable bilateral screening mammogram. Yearly follow-up mammogram recommended. (A) ASSESSMENT CATEGORY: BIRADS Category 1: Negative. A letter regarding these results will be sent to the patient by the facility within 30 days. Approximately 10% of breast cancers are not detected by mammography. A normal mammogram should not delay biopsy of a clinically suspicious abnormality. Electronically Signed: Mario Alberto Mujica, at 15:41 EDT ,
== END | disposition home or self-care (01) ==
LOC: OPBI 12:47
PROVIDERS: PCP Family Medicine; Visit Provider Nurse Practitioner Women's Health
DX: Z12.31 Encounter for screening mammogram for malignant neoplasm of breast (principal)
CPT/HCPCS: 77063; 77067

== ENCOUNTER → 2023-05-23 | Outpatient (CLI) | payer OTHER, SELFPAY ==
[2023-05-23 11:58] LABS: Absolute Neutrophil Count 3.3 X10^3/uL (2.0-7.7); Basophil# 0.06 X10^3/uL; Eosinophil# 0.33 X10^3/uL; Eosinophils% 5.4 % (0-5); Hemoglobin 14.6 g/dL (12.0-15.0); Lymphocyte % 27.8 % (19-41); Mean Corp Hgb Conc 32.4 g/dL (32-36); Mean Corpuscular Hgb 29.8 pg (27.0-32.0); Mean Corpuscular Volume 91.8 fL (81-99); Mean Platelet Vol. 9.9 fl (6.2-12.0); Monocyte# 0.71 X10^3/uL; Monocyte% 11.6 % (0-10); NRBC Flagged by Analyzer 0 % (0-5); Platelet Count 235 K/mm3 (150-450); RBC Distribution Width CV 12.7 % (11.6-14.6); RBC Distribution Width SD 42.8 fl (35.1-43.9); White Blood Count 6.1 K/mm3 (4.4-11.0)
[2023-05-23 12:21] LABS: Vitamin B12 400 pg/mL (211-911); Vitamin D,25 Hydroxy 28.3 ng/mL
[2023-05-23 12:24] LABS: ALB/GLOB Ratio 0.9 RATIO (0.9-2.4); AST(SGOT) 14 U/L (15-37); Alanine Aminotransfer ALT/SGPT 14 U/L (13-56); Albumin, Serum 3.5 g/dL (3.2-5.0); Alkaline Phosphatase 84 U/L (45-117); Anion Gap 6 (5-15); BUN 15 mg/dL (7-18); BUN/Creat Ratio 19.4 RATIO (10-20); Calcium,Total 8.9 mg/dL (8.5-10.1); Chloride 110 mmol/L (98-107); Cholesterol 213 mg/dL (200); Creatinine, Serum 0.77 mg/dL (0.55-1.02); EST Glomerular Filtration Rate 80 mL/min (>60); Est Glom Filt Rate - Afr Amer 97 mL/min (>60); Ferritin 161 ng/mL (8-252); Glucose 89 mg/dL (74-106); High Density Lipoprotein 53 mg/dL; Iron 98 ug/dL (50-170); Potassium 4.1 mmol/L (3.5-5.1); Protein, Total 7.5 g/dL (6.4-8.2); Sodium Level 142 mmol/L (136-145); T4 Free Direct 0.93 ng/dL (0.76-1.46); Thyroid Stim Hormone (TSH) 1.51 uIU/mL (0.358-3.74); Triglycerides 141 mg/dL; Very Low Density Lipoprotein 28 mg/dL (5-40)
== END | disposition home or self-care (01) ==
LOC: BFHLAB 08:32
PROVIDERS: PCP Nurse Practitioner Family; Referring Provider Nurse Practitioner Family; Visit Provider Nurse Practitioner Family
DX: Z00.00 Encounter for general adult medical examination without abnormal findings (principal); R53.83 Other fatigue
CPT/HCPCS: 36415; 80053; 80061; 82306; 82607; 82728; 83540; 84439; 84443; 85025

== ENCOUNTER → 2023-06-09 | Outpatient (CLI) | payer OTHER, SELFPAY ==
--- NOTE | 2023-06-09 15:28 | BD_ITS ---
STUDY: DUAL ENERGY X-RAY ABSORPTIOMETRY / DXA REASON FOR EXAM: Female, 63 years old. M810 TECHNIQUE: Bone Mineral Density (BMD) measurements of lumbar spine and bilateral hips were obtained. COMPARISON: Comparison is made with prior study of April 19, 2017. FINDINGS: Lumbar Spine (L1-L4): g/cm2 (1.076) / T-score (0.3) / Z-score (1.9) Findings are suggestive of normal bone density with a low fracture risk. Left Femur Total: g/cm2 (0.847) / T-score (-0.8) / Z-score (0.3) Left Femoral Neck: g/cm2 (0.597) / T-score (-2.3) / Z-score (-0.8) Right Femur Total: g/cm2 (0.865) / T-score (-0.6) / Z-score (0.5) Right Femoral Neck: g/cm2 (0.704) / T-score (-1.3) / Z-score (0.1) The T-Scores on the most recent prior examination were: Lumbar Spine (L1-L4): There has been worsening of bone density since the previous examination. Left Femur Total: which represents a worsening of 6.6%. Right Femur Total: which represents a worsening of 0.7%. BD/Dexa Bone Density Study IMPRESSION: The patient is considered osteopenic as outlined below according to World And[place] Organization (WHO) criteria with a high fracture risk. There has been worsening of bone density since the previous examination. Reference Information: The T-score is the number of standard deviations above or below the standard which is normal for young adults at their peak bone mineral density. The World Health Organization (WHO) interprets the T-scores as follows: Above -1 Normal bone density Between -1 and -2.5 Osteopenia Equal to / or below -2.5 Osteoporosis As a practical clinical guideline, osteopenia may be graded as follows: Mild -1 through -1.5 Moderate -1.6 through -2.0 Severe -2.1 through -2.4 The Z-score is the number of standard deviations above or below age-matched controls. A Z-score of less than -1.5 would be considered abnormal. References: 1. NIH Osteoporosis and Related Bone Diseases www osteo.org 2. International Society for Clinical Densitometry www iscd.org 3. National Osteoporosis Foundation www nof.org Electronically Signed: Stoney Lawton MD at 10:08 EDT ,
== END | disposition home or self-care (01) ==
PROVIDERS: PCP Nurse Practitioner Family; Referring Provider Nurse Practitioner Family; Visit Provider Nurse Practitioner Family
DX: M85.80 Other specified disorders of bone density and structure, unspecified site (principal); Z13.820 Encounter for screening for osteoporosis; M81.0 Age-related osteoporosis without current pathological fracture
CPT/HCPCS: 77080

== ENCOUNTER → 2023-07-26 | Outpatient (CLI) | payer OTHER, SELFPAY ==
--- NOTE | 2023-07-26 15:32 | BI_ITS ---
MAMMOGRAPHY - BILATERAL SCREENING REASON FOR EXAM: Female, 63 years old. Routine annual screening examination. PERTINENT HISTORY: Non-contributory. TECHNIQUE: Digital bilateral breast giselle (3D mammographic acquisition) in the CC and MLO projections. 2-D mediolateral oblique (MLO) and craniocaudad (CC) views of both breasts were obtained. CAD: Full Field Digital Mammography with Computer Added Detection was performed. COMPARISON: Comparison is made with prior study July 09, 2022 and March 03, 2021. FINDINGS: Breast Composition: The breasts are heterogeneously dense, which may obscure small masses. There is a 4.1 mm x 5.9 mm well-defined nodule in the superficial aspect of the right breast just above and lateral to the right areola. Correlation with ultrasound is recommended. Stable benign-appearing bilateral axillary lymph nodes. No other significant abnormalities are identified. BI/SCRN MAMM (CAD)W/GISELLE BILAT IMPRESSION: 4.1 mm x 5.9 mm well-defined nodule in the superficial aspect of the right breast superior and lateral to the right areolar region. Correlation with ultrasound is recommended. ASSESSMENT CATEGORY: BIRADS Category 0: Incomplete. Need additional imaging evaluation. A letter regarding these results will be sent to the patient by the facility within 30 days. Approximately 10% of breast cancers are not detected by mammography. A normal mammogram should not delay biopsy of a clinically suspicious abnormality. [id number] Electronically Signed: Stoney Lawton MD at 10:54 EDT ,
== END | disposition home or self-care (01) ==
LOC: OPBI 15:30
PROVIDERS: PCP Nurse Practitioner Family; Referring Provider Nurse Practitioner Family; Visit Provider Nurse Practitioner Family
DX: Z12.31 Encounter for screening mammogram for malignant neoplasm of breast (principal)
CPT/HCPCS: 77063; 77067

== ENCOUNTER → 2023-08-03 | Outpatient (CLI) | payer OTHER, SELFPAY ==
--- NOTE | 2023-08-03 14:53 | US_ITS ---
STUDY: ULTRASOUND BREAST - RIGHT REASON FOR EXAM: Female, 63 years old. Abnormal screening mammogram. TECHNIQUE: Axial and longitudinal images of the RIGHT breast were performed with a high resolution ultrasound transducer. # OF IMAGES: 6 COMPARISON: Comparison is made with prior mammogram dated July 26, 2023. FINDINGS: RIGHT Breast: The mammographic abnormality corresponds to a 3 mm x 5 mm x 2 mm cyst at the 11:00 position of the breast at 1 cm from the nipple. US/Breast Limited Unilateral IMPRESSION: The mammographic abnormality corresponds to a 3 mm x 5 mm x 2 mm cyst at the 11:00 position of the breast at 1 cm from the nipple. ASSESSMENT CATEGORY: BIRADS Category 2: Benign. A letter regarding these results will be sent to the patient by the facility within 30 days. Electronically Signed: Stoney Lawton MD at 15:33 EDT ,
== END | disposition home or self-care (01) ==
LOC: OPUS 14:49
PROVIDERS: PCP Nurse Practitioner Family; Referring Provider Nurse Practitioner Family; Visit Provider Nurse Practitioner Family
DX: R92.2 Inconclusive mammogram (principal)
CPT/HCPCS: 76642

== ENCOUNTER 2024-12-17 08:46 | Emergency (ER) | payer OTHER, SELFPAY ==
[2024-12-17 08:47] VITALS: BP 129/85; PULSE 96; RESP 18; TEMP 36.8; O2SAT 98; BMI 34.3
--- NOTE | 2024-12-17 09:15 | EX.ED.DYSGE1 ---
HPI History of Present Illness Chief Complaint: Lower Extremity Injury Informant: patient Onset/Context/Timing Onset: Days Context: Gradual Onset Timing: Continuous Current Severity: Mild Maximum Severity: Mild Narrative Narrative: 64-year-old female history of prior bilateral knee replacements years ago. Patient states she had oral surgery done on Tuesday for her right upper molar. She was given IV antibiotics and placed on antibiotics currently orally. Patient states after her surgery she started having low-grade fevers 99.7 200.2. Was not feeling well but was concerned because she had pain in both knees. She denies any redness or swelling to her knees. Denies any injuries. She was concerned and wanted to be evaluated. She denies any significant cough. No dysuria. No abdominal pain. No trouble breathing. No rashes. No sore throat. Prior similar symptoms: No Recent Illness/Hospitalization: No PFSH PFS Medical History Anxiety and depression Home Medications ?Medication ?Instructions ?Recorded ?Last Taken ?Type sertraline 100 mg tablet (Zoloft) 100 mg PO DAILY 03/03/21 Unknown History calcium 260 mg (phos,tribasic)-D3 tab PO 07/05/22 Unknown History 25 mcg-herbal 50 mg chewable tablet (Alive Calcium-Vitamin D3) clobetasol 0.05 % topical ointment 1 applic topical .COMPLEX #15 grams 07/05/22 Unknown Rx mecobalamin (vitamin B12) 5,000 mcg PO 07/05/22 Unknown History mcg disintegrating tablet estradiol 0.01% (0.1 mg/gram) See Rx Instructions vaginal 08/05/22 Unknown Rx vaginal cream .COMPLEX #42.5 grams Allergy/AdvReac Type Severity Reaction Status Date / Time Sulfa (Sulfonamide Allergy Intermediate rash Verified 12/17/24 08:47 Antibiotics) Family History Father Diabetes Heart disease Surgical History S/P section Total knee replacement status Previous back surgery Social History Smoking Status: Former smoker alcohol intake: never substance use type: does not use caffeine: Yes what type of physical activity do you participate in: walking frequency: 3-4 times per week seatbelt use: always do you feel safe at home: Yes additional social history: 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 Constitutional Constitutional ED: Reports fever(s) Eyes Eyes: Denies blurry vision ENT ENT ED: Denies ear pain Cardiovascular Cardiovascular: Denies chest pain Respiratory/Chest Respiratory/Chest: Denies cough or dyspnea Gastrointestinal Gastrointestinal: Denies abdominal pain, constipation, diarrhea, melena, nausea or vomiting Genitourinary Genitourinary ED: Denies dysuria or hematuria Musculoskeletal Musculoskeletal: Denies arthralgias or back pain Integumentary Denies abscess or Abrasions Neurologic Neurologic: Denies headache(s) or paresthesias Psychiatric Psychiatric: Reports anxiety Endocrine Endocrinology: Denies cold intolerance Hematologic/Lymphatic Hematologic/Lymphatic: Reports none Allergic/Immunologic Allergic/Immunologic ED: Denies mouth swelling, tongue swelling or urticaria EXAM Physical Exam Narrative Exam Narrative: Well-appearing 64-year-old female. Vital signs are stable. She does not appear septic or toxic. She is no distress. HEENT exam pupils round react light. Moist mucous membranes. No trouble swallowing or breathing. No erythema or exudate of posterior pharynx. Her right upper second last molar there is been recent dental surgery. Sutures in place. There is mild swelling. There is no abscess. It looks like it is healing nicely. Neck nontender no lymphadenopathy. Back nontender no rash. Lungs clear to auscultation bilaterally. Heart regular rhythm rate about 95 no murmur. Chest wall ribs nontender. Abdomen soft nontender. Patient moving all 4 extremities. Exam of her knees she has normal range of motion of both knees. Well-healed prior surgical scars. No redness. No warmth. No signs of septic joint. No swelling or effusion. She can flex and extend either knee. Skin appears normal. She is able to flex extend both hips, knees and ankles. Normal strength. There is no rashes. No inguinal lymphadenopathy. Upper extremities are unremarkable. She has normal strength and range of motion. Neurologically she is awake and alert. Const Vital Signs: 12/17/24 08:47 12/17/24 10:47 12/17/24 12:00 Temperature 98.2 F Temperature Source Oral Pulse Rate 96 76 71 Respiratory Rate 18 16 18 Blood Pressure 129/85 H 120/84 H 122/80 H Blood Pressure Mean 99 96 94 Pulse Ox 98 98 96 Oxygen Delivery Method Room Air Positive well nourished and well developed; Negative for cachectic, contractures or unkempt General Appearance ED: well developed and NAD; Negative for unkempt, cachectic, contractures, cyanotic, diaphoretic or pallor Nutritional Appearance: Negative for cachectic HEENT Reports moist mucous membranes Negative for trauma or tenderness Eyes PERRL and EOMs intact bilaterally General Eye ED: Negative for pale conjunctiva or scleral icterus Neck no lymphadenopathy, supple and no JVD General: Negative for tenderness Chest Wall inspection of chest normal and palpation of chest normal Resp normal respiratory effort and clear to auscultation bilaterally Effort and Inspection: Negative for retractions Auscultation: Negative for rales, rhonchi, wheezes or diminished lung sounds Cardio regular rate, regular rhythm, S1 normal heart sound, S2 normal heart sound and no murmurs GI normal to inspection, nondistended, normoactive bowel sounds, non-tender, non-distended and no masses Palpation: soft; Negative for tender, guarding or rebound tenderness present Back/Spine no CVA tenderness General Back: Negative for CVA tenderness Cervical Spine: Negative for cervical spine tenderness Thoracic Spine / Upper Back: Negative for thoracic spinal tenderness Lumbar Spine / Lower Back: Negative for lumbar spinal tenderness Extremity normal to inspection Extremity Narrative: Bilateral knee prior replacement surgeries. Well-healed surgical scars. No signs of infection. Full flexion extension. No edema. No redness or warmth. No effusions. No signs of septic joint. Normal strength in both lower extremities. Normal range of motion of both lower extremities. Skin is unremarkable with no rashes. General Extremety ED: Negative for edema or tenderness General Extremity: Negative for edema Neuro oriented x3 and CN's II-XII intact bilaterally Sensorium / Orientation: alert; Negative for orientation impaired or lethargic Motor Exam: strength 5/5 throughout Psych mental status grossly normal Appearance: Negative for unkempt Mood & Affect: Negative for tearful Skin no rashes or lesions noted, no wounds and skin turgor normal General Skin Exam: Negative for jaundice or pallor MDM MDM MDM Narrative Medical decision making narrative: 64-year-old female suspect viral syndrome. She had recent dental surgeries on antibiotics. Reportedly was given antibiotics during the procedure also. She is having knee pain she had prior knee replacements. That was done 5 or 6 years ago she states. Her knee exam is normal. There is no signs of infection. There is no redness or warmth. She has normal range of motion. There is no swelling or effusion. There is no cellulitis. Screening labs are being obtained. Repeat exam at 12:58 PM patient doing well. Her knees are nontender. She has normal flexion extension. There is no redness. No warmth. No swelling or effusion. They do not look infected at all. She and I went over her test results. She is comfortable being discharged to home. She may have an underlying viral syndrome but there is no signs of infection in either knee joint. She will be discharged home to follow-up with her orthopedic physician if she has continued knee pain. She knows to return if she is knee swelling or redness. History & Record Review Discussion w/independent historian: Patient Additional record(s) reviewed:: Prior inpatient record, Prior outpatient record, Prior ED visit and Prior labs Lab Data Attestation: I reviewed the patient's lab results. Lab results narrative: CBC shows a normal white count of 10. H&H 13 and 40. Platelets are 241. Patient's sed rate is normal at 29. Electrolytes show a gap of 6. Normal BUN of 10 creatinine 0.7. Glucose 102. Urinalysis normal. No white or red cells. Only 1+ bacteria. No nitrites. COVID, flu and RSV were all negative. Chest x-ray unremarkable. Labs: Laboratory Results - last 24 hr 12/17/24 12/17/24 07:14 09:31 WBC 10.0 RBC 4.41 Hgb 13.2 Hct 40.3 MCV 91.4 MCH 29.9 MCHC 32.8 RDW Std Deviation 42.5 RDW Coeff of Honey 12.8 Plt Count 241 MPV 10.1 Immature Gran % (Auto) 0.400 Neut % (Auto) 69.6 Lymph % (Auto) 18.1 L Bacon % (Auto) 10.7 H Eos % (Auto) 0.7 Baso % (Auto) 0.5 Absolute Neuts (auto) 6.9 Absolute Lymphs (auto) 1.80 Nucleated RBC % 0 ESR 29 Sodium 140 Potassium 3.6 Chloride 108 H Carbon Dioxide 25.0 Anion Gap 6 BUN 10 Creatinine 0.77 Estim Creat Clear Calc 77.65 Est GFR (MDRD) Af Amer 97 Est GFR (MDRD) Non-Af 81 BUN/Creatinine Ratio 13.1 Glucose 102 Calcium 9.3 Urine Color Yellow Urine Clarity Sl. Cloudy Urine pH 5.0 Ur Specific [place] 1.025 Urine Protein 30 H Urine Glucose (UA) Normal Urine Ketones 5 H Urine Occult Blood 25 H Urine Nitrite Negative Urine Bilirubin 1 H Urine Urobilinogen 1 H Ur Leukocyte Esterase 100 H Urine RBC 0 SEEN Urine WBC 0-5 SEEN Ur Squamous Epith Cells 0-5 SEEN Urine Bacteria 1+ Urine Mucus 0 SEEN Radiography Chest X-Ray - ED: 2 View, Read by ED Physician, Read by Radiologist, Normal, Heart, Lungs, Mediastinum, Bony Structures, No Acute Disease and Chronic Changes Diagnostic Testing: Clinical Impression(s) from Imaging Studies Chest X-Ray 12/17/24 09:53 IMPRESSION: Mild scarring Electronically Signed: Stoney Lawton MD at 10:28 EST , Chest x-ray, 2 views, AP and lateral, interpreted by myself and radiologist shows no acute abnormality. Normal cardiac silhouette. No pneumonia. Discharge Plan Triage Chief Complaint: Lower Extremity Injury ED Provider: Holger Gonzalez Dx/Rx/DC Orders Clinical Impression: Viral syndrome, History of dental surgery, History of bilateral knee replacement Instructions: ED Viral Syndrome (Adult) Prescriptions: No Action sertraline [Zoloft] 100 mg tablet 100 mg PO DAILY Alive Calcium-Vitamin D3 260 mg calcium- 25 mcg-50 mg tablet,chewable PO mecobalamin (vitamin B12) 5,000 mcg tablet,disintegrating PO clobetasol 0.05 % ointment 1 applic topical .COMPLEX Qty: 15 2RF Rx Instructions: 1 applic topical apply bid X 2 weeks, daily X 2 weeks then prn. Small amount and massge in; estradiol 0.01 % (0.1 mg/gram) cream See Rx Instructions vaginal .COMPLEX Qty: 42.5 2RF Rx Instructions: small amount as directed vaginal every other day X 4 weeks then twice a week; Primary Care Provider: Olivia Reynolds: Donnie Silverman MD [Med Staff - Active Staff] - As soon as possible Olivia Reynolds, ENGINEERING VICE PRESIDENT-C [Primary Care Provider] - Activity Restrictions/Additional Instructions: Your test today look good. There is no signs of any infection in your knees. Use Tylenol and/or Motrin for any pain. Follow-up with your orthopedic doctor Donnie Silverman if your knees are not improving to have them evaluated. If wanderer either your knees will start becoming significantly swollen with redness then we need to reevaluate them. At this time there is no signs of infection. Print Language: Slovenian Disposition Disposition: Home, Self Care
[2024-12-17 09:28] LABS: Erythrocyte Sedimentation Rate 29 mm/hr (0-30)
[2024-12-17 09:30] LABS: Absolute Neutrophil Count 6.9 X10^3/uL (2.0-7.7); Basophil# 0.05 X10^3/uL; Basophil% 0.5 % (0-1); Eosinophil# 0.07 X10^3/uL; Eosinophils% 0.7 % (0-5); Hematocrit 40.3 % (37-47); Hemoglobin 13.2 g/dL (12.0-15.0); Lymphocyte % 18.1 % (19-41); Mean Corp Hgb Conc 32.8 g/dL (32-36); Mean Corpuscular Hgb 29.9 pg (27.0-32.0); Mean Corpuscular Volume 91.4 fL (81-99); Mean Platelet Vol. 10.1 fl (6.2-12.0); Monocyte# 1.06 X10^3/uL; Monocyte% 10.7 % (0-10); NRBC Flagged by Analyzer 0 % (0-5); Neutrophil # 6.93 X10^3/uL (2.7-7.7); Neutrophil % 69.6 % (47-70); Platelet Count 241 K/mm3 (150-450); RBC Distribution Width CV 12.8 % (11.6-14.6); RBC Distribution Width SD 42.5 fl (35.1-43.9); Red Blood Count 4.41 M/mm3 (4.2-5.4)
[2024-12-17 09:37] LABS: Mucous, Urine 0 SEEN /hpf (<or=2+); Red Blood Cells-Urine 0 SEEN /hpf (0-5)
[2024-12-17 09:38] LABS: Anion Gap 6 (5-15); BUN 10 mg/dL (7-18); BUN/Creat Ratio 13.1 RATIO (10-20); Calcium,Total 9.3 mg/dL (8.5-10.1); Chloride 108 mmol/L (98-107); Creatinine, Serum 0.77 mg/dL (0.55-1.02); EST Glomerular Filtration Rate 81 mL/min (>60); Est Glom Filt Rate - Afr Amer 97 mL/min (>60); Estimated Creatinine Clearance 77.65 ml/min; Glucose 102 mg/dL (74-106); Potassium 3.6 mmol/L (3.5-5.1); Sodium Level 140 mmol/L (136-145)
[2024-12-17 09:38] LABS: Color, Urine Yellow (Yellow); Glucose, Dipstick Normal (Normal); Ketone-Dipstick 5 mg/dl (Negative); Leukocyte Esterase-Dipstick 100 /ul (Negative); Nitrite-Dipstick Negative (Negative); Occult Blood-Urine 25 /ul (Negative); Protein-Dipstick 30 mg/dl (Negative); Specific Gravity, Urine 1.025 (1.002-1.030); Urine Bilirubin Dipstick 1 mg/dL (Negative); Urine Clarity Sl. Cloudy (Clear); Urine Urobilinogen 1 mg/dl (Normal)
[2024-12-17 09:52] LABS: Bacteria 1+ /hpf (None Seen); Squamous Epithelial Cells - UA 0-5 SEEN /hpf (5-10); White Blood Cells 0-5 SEEN /hpf (0-5)
--- NOTE | 2024-12-17 09:53 | RAD_ITS ---
STUDY: X-RAY CHEST REASON FOR EXAM: Female, 64 years old. Fever TECHNIQUE: PA and lateral views of the chest. COMPARISON: Comparison is made with prior study dated April 19, 2021. FINDINGS: Pectus excavatum. Stable mild increased markings at the lung bases is however basilar scarring. There is no demonstrated pleural abnormality. Normal size heart. Normal mediastinum and mauricio. Normal visualized pulmonary arteries. There is atherosclerotic tortuosity of the aortic arch and descending thoracic aorta. There are diffuse degenerative changes of the visualized thoracic spine. Normal visualized ribs, clavicles, and shoulders. There is no demonstrated abnormality of the visualized soft tissue structures of the upper abdomen. RAD/Chest PA and Lateral IMPRESSION: Mild scarring Electronically Signed: Stoney Lawton MD at 10:28 EST ,
[2024-12-17 10:47] VITALS: BP 120/84; PULSE 76; RESP 16; O2SAT 98
[2024-12-17 12:00] VITALS: BP 122/80; PULSE 71; RESP 18; O2SAT 96
== END 2024-12-17 13:15 | disposition home or self-care (01) ==
PROVIDERS: Emergency Provider Emergency Medicine; PCP Nurse Practitioner Family; Visit Provider Emergency Medicine
DX: B34.9 Viral infection, unspecified (principal); Z98.818 Other dental procedure status; Z96.653 Presence of artificial knee joint, bilateral; M25.561 Pain in right knee; M25.562 Pain in left knee; F41.9 Anxiety disorder, unspecified; F32.A Depression, unspecified; Z88.2 Allergy status to sulfonamides; Z79.899 Other long term (current) drug therapy; Z87.891 Personal history of nicotine dependence
CPT/HCPCS: 71046; 80048; 81001; 85025; 85652; 87631; 99283

== ENCOUNTER → 2025-05-27 | Outpatient (CLI) | payer OTHER, SELFPAY ==
--- NOTE | 2025-05-27 14:00 | RAD_ITS ---
PROCEDURE: FOOT MIN 3 VIEWS 05/27/2025 REASON FOR EXAM: HALLAX VALGUS DEFORMITY,NEW PAIN TECHNIQUE: FOOT MIN 3 VIEWS COMPARISON: None FINDINGS: No displaced fracture. There is hallux valgus with a 1st metatarsophalangeal angle of 30 degrees. There is osteophyte formation and joint space narrowing which is most pronounced at the 1st metatarsophalangeal joint. Accessory navicular bone. Plantar and Achilles heel spurs. RAD/Foot min 3 Views IMPRESSION: 1. Hallux valgus. 2. Moderate osteoarthritis throughout the foot, worst at the 1st metatarsophal angeal joint. Reading Location: [facility]
== END | disposition home or self-care (01) ==
LOC: RAD 13:55
PROVIDERS: PCP Nurse Practitioner Family; Referring Provider Nurse Practitioner Family; Visit Provider Nurse Practitioner Family
DX: M79.674 Pain in right toe(s) (principal); M20.11 Hallux valgus (acquired), right foot
CPT/HCPCS: 73630

== ENCOUNTER → 2025-06-07 | Outpatient (CLI) | payer OTHER, SELFPAY ==
[2025-06-07 11:02] LABS: Hematocrit 44.0 % (37-47); Hemoglobin 14.9 g/dL (12.0-15.0); Immature Granulocytes Count 0.010 X10^3/uL (0.0-0.0); Mean Corp Hgb Conc 33.9 g/dL (32-36); Mean Corpuscular Volume 90.0 fL (81-99); Mean Platelet Vol. 10.5 fl (6.2-12.0); NRBC Flagged by Analyzer 0 % (0-5); Platelet Count 224 K/mm3 (150-450); RBC Distribution Width CV 12.6 % (11.6-14.6); RBC Distribution Width SD 41.1 fl (35.1-43.9); Red Blood Count 4.89 M/mm3 (4.2-5.4); White Blood Count 6.8 K/mm3 (4.4-11.0)
--- NOTE | 2025-06-07 11:09 | BI_ITS ---
EXAM: SCREENING MAMM (CAD), BILAT DATE: 06/07/2025 CLINICAL HISTORY: F, Age 65 y/o , SCREENING TECHNIQUE: SCREENING MAMM (CAD), BILAT COMPARISON: Prior exam(s) dated 07/26/2023, 07/09/2022, 03/03/2021. FINDINGS: TISSUE DENSITY: There are scattered areas of fibroglandular density. Bilateral Breast Mammographic Findings: No significant masses, calcifications or other abnormalities are identified. BI/SCREENING MAMM (CAD), BILAT IMPRESSION: There is no mammographic evidence of malignancy. OVERALL FINAL ASSESSMENT BI-RADS 1: NEGATIVE. RECOMMENDATION: Routine annual follow-up in 1 Year A letter with findings and recommendations will be mailed to the patient. Reading Location: [id number]
[2025-06-07 12:03] LABS: AST(SGOT) 19 U/L (<=31); Alanine Aminotransfer ALT/SGPT 8 U/L (<=34); Albumin, Serum 4.2 g/dL (3.4-4.8); Alkaline Phosphatase 90 U/L (35-104); Anion Gap 10 (5-15); BUN 13 mg/dL (4-19); BUN/Creat Ratio 16.7 RATIO (10-20); Calcium,Total 9.3 mg/dL (7.6-11.0); Carbon Dioxide 26.4 mmol/L (21.0-32.0); Chloride 105 mmol/L (98-108); Cholesterol 202 mg/dL (<=200); Globulin 3.2 g/dL (2.2-4.2); Glucose 95 mg/dL (70-99); Low Density Lipoprotein Calc. 131 mg/dL; Potassium 4.6 mmol/L (3.3-5.1); Triglycerides 120 mg/dL; Very Low Density Lipoprotein 24 mg/dL (5-40); Vitamin D,25 Hydroxy 26.2 ng/mL (30-100); cholesterol:hdl ratio screen 4.26
--- OUTSIDE RECORDS SUMMARY | 2025-06-07 18:54 | XMS RPT_ITS | CCD ---
Author Organization [facility] mod[facility] Care Team Providers Care Rail Project Engineer Name Role Phone Zachariah KONGCarlo Unavailable Rodolfo PEANUT FARMER-C, Olivia Primary Care Provider Rodolfo PEANUT FARMER-C, Olivia Attending Provider Rodolfo PEANUT FARMER-C, Olivia Referring Provider Olivia Reynolds Primary Care Unavailable Olivia Reynolds Attending Unavailable Olivia Reynolds Referring Unavailable Rodolfo, Olivia Primary Care Unavailable Holger Gonzalez Attending Unavailable RodolfoOlivia hahn Primary Care Unavailable Olivia Reynolds Attending Unavailable Olivia Reynolds Referring Unavailable Allergies Allergy Classification Reported Allergen(s) Allergy Type Date of Onset Reaction(s) Facility (1 source) sulfacetamide Drug Allergy 7 rashes, and chest [facility] Work Phone: (5 sources) Sulfonamides (Antibiotic) Allergy to substance 2 rash [facility] (1 source) Sulfonamides (Antibiotic) Drug allergy (disorder) 5 [facility] Repository Medications Current Medications Medication Drug Class(es) Dates Sig (Normalized) Sig (Original) Calcium Nxiv-V7-Ywvviq No.293 (Alive Calcium-Vitamin D3) 260 mg calcium- 25 mcg-50 mg tablet,chewable (5 sources) Start: 07-05-2022 Calcium Vvvi-N4-Slpaob No.293 (Alive Calcium-Vitamin D3) 260 mg calcium- 25 mcg-50 mg tablet,chewable Active {tbl} PO July 05, 2022 12:00am Start: 07-05-2022 Calcium Phos-D 3-Herbal No.293 (Alive Calcium-Vitamin D3) 260 mg calcium- 25 mcg-50 mg tablet,chewable Active TABLET PO July 05, 2022 12:00am clobetasol propionate 0.0005 mg/mg topical ointment (5 sources) Corticosteroid Start: 07-05-2022 Clobetasol 0.0 5 % ointment Active 1 NMA TOPICAL .COMPLEX 15 2 July 05, 2022 12:00am 1 applic topical apply bid X 2 weeks, daily X 2 weeks then prn. Small amount and massge in; estradiol 0.1 mg/ml vaginal cream (5 sources) Estrogen Start: 08-05-2022 Estradiol 0.01 % (0.1 mg/gram) cream Active 0 VAGINAL .COMPLEX 42.5 2 August 05, 2022 12:00am small amount as directed vaginal every other day X 4 weeks then twice a week; Start: 08-05-2022 Estradiol Acti ve 0 VAGINAL .COMPLEX 42.5 August 05, 2022 12:00am small amount as directed vaginal every other day X 4 weeks then twice a week; mecobalamin 5 mg disintegrating oral tablet (5 sources) Start: 07-05-2022 Mecobalamin (V itamin B12) 5,000 mcg tablet,disintegrating Active ug PO July 05, 2022 12:00am Start: 07-05-2022 Mecobalamin (V itamin B12) Active MCG PO July 05, 2022 12:00am sertraline 100 mg oral tablet (6 sources) Serotonin Reuptake Inhibitor Start: 03-03-2021 take 1 tablet by mouth once daily Sertraline (Zoloft) 100 mg tablet Active 100 mg PO DAILY March 03, 2021 12:00am Start: 07-28-2017 ZOLOFT 100 MG TABS once daily SERTRALINE HCL [id number] Jessica Ceballos LUMBER TALLIER-ROAD ROLLER ENGINEER Completed/Discontinued Medications Medication Drug Class(es) Dates Sig (Normalized) Sig (Original) acetaminophen 500 mg oral tablet (5 sources) Start: 05-23-2021 End: 07-05-2022 take 2 tablets by mouth every eight hours Acetaminophen 500 mg Tablet Discontinued 1000 mg PO EVERY 8 HOURS 0 0 May 23, 2021 12:00am July 05, 2022 8:18am Start: 05-23-2021 End: 07-05-2022 take 1000 mg by mouth every eight hours Acetaminophen Discontinued 1000 MG PO EVERY 8 HOURS 0 May 23, 2021 12:00am July 05, 2022 8:18am CELECOXIB CAPS (1 source) Nonsteroidal Anti-inflammatory Drug Start: 08-01-2018 CELEBREX CAPS one tablet a day CELECOXIB CAPS [id number] Carlo Soni DO docusate sodium 50 mg / sennosides, group home 8.6 mg oral tablet (5 sources) Start: 05-23-2021 End: 07-05-2022 Sennosides-Docusa te Sodium (Stool Softener-Stimulan t Laxat) 8.6-50 mg Tablet Discontinued 2 {tbl} PO TWICE A DAY 0 May 23, 2021 12:00am July 05, 2022 8:19am famotidine 20 mg oral tablet (10 sources) Histamine-2 Receptor Antagonist Start: 05-23-2021 End: 08-05-2022 take 1 tablet by mouth once daily Famotidine 20 mg tablet Discontinued 20 mg PO DAILY July 05, 2022 8:19am August 05, 2022 2:58pm fluconazole 150 mg oral tablet (5 sources) Azole Antifungal Start: 06-07-2022 End: 07-05-2022 Fluconazole 150 mg tablet Discontinued 150 mg PO .COMPLEX 2 0 June 07, 2022 12:00am July 05, 2022 8:19am 150 mg PO take one po now and repeat in 3 days Nut.Tx.Comp. Immune Systm,Reg (Ensure Surgery) 0.08-1.4 gram-kcal/mL Liquid (5 sources) Start: 05-23-2021 End: 07-05-2022 Nut.Tx.Comp. Immune Systm,Reg (Ensure Surgery) 0.08-1.4 gram-kcal/mL Liquid Discontinued 237 mL PO 3 TIMES DAILY WITH MEALS 0 May 23, 2021 12:00am July 05, 2022 8:19am Start: 05-23-2021 End: 07-05-2022 Nut.Tx.Comp. Immune Systm,Re g (Ensure Surgery) 0.08-1.4 gram-kcal/mL Liquid Discontinued 237 ML PO 3 TIMES DAILY WITH MEALS 0 May 23, 2021 12:00am July 05, 2022 8:19am oxyCODONE hydrochloride 5 mg oral tablet (5 sources) Opioid Agonist Start: 05-23-2021 End: 07-05-2022 take 5-10 mg by mouth every four hours as needed for pain Oxycodone 5 mg Tablet Discontinued 5 - 10 mg PO EVERY 4 HOURS NEEDED as needed for Pain Score 4-10 0 0 May 23, 2021 July 05, 2022 8:19am Problems Active Problems Problem Classification Problem Date Documented Da te Episodic/Chronic Anxiety disorders (5 sources) Mixed anxiety and depressive disorder; Translations: [Anxiety disorder, unspecified] 07-05-2022 Chronic Disorders of lipid metabolism (1 source) Hyperlipidemia, unspecified; Translations: [Hyperlipidemia, unspecified] Onset: 06-07-2025 Chronic Essential hypertension (1 source) Essential (primary) hypertension; Translations: [Essential (primary) hypertension] Onset: 06-07-2025 Chronic Menopausal disorders (5 sources) Atrophic vaginitis; Translations: [Postmenopausal atrophic vaginitis] 08-05-2022 Chronic Comment on above: estradiol cream Nutritional deficiencies (1 source) Vitamin D deficiency, unspecified; Translations: [Vitamin D deficiency, unspecified] Onset: 06-07-2025 Chronic Other acquired deformities (1 source) Spondylolisthesis; Translations: [Spondylolisthesis , site unspecified] Onset: 01-13-2017 01-13-2017 Chronic Other connective tissue disease (1 source) Pain in right toe(s); Translations: [Pain in right toe(s)] Onset: 05-29-2025 Episodic Other screening for suspected conditions (not mental disorders or infectious disease) (1 source) Encounter for screening mammogram for malignant neoplasm of breast; Translations: [Encounter for screening mammogram for malignant neoplasm of breast] Onset: 06-07-2025 Episodic Other skin disorders (5 sources) Lichen sclerosus et atrophicus; Translations: [Lichen sclerosus et atrophicus] 07-05-2022 Chronic Comment on above: clobetesol Residual codes; unclassified (1 source) History of surgical procedure on mouth; Translations: [Personal history of other medical treatment] 12-25-2024 Episodic Viral infection (1 source) Viral disease; Translations: [Viral infection, unspecified] 12-25-2024 Episodic Past or Other Problems Problem Classification Problem Date Documented Da te Episodic/Chronic Other bone disease and musculoskeletal deformities (1 source) Disorder of bone; Translations: [Disorder of bone density and structure, unspecified] Onset: 01-13-2017 01-13-2017 Episodic Other connective tissue disease (1 source) Arthrodesis status; Translations: [Arthrodesis status] Onset: 07-28-2017 07-28-2017 Episodic Other non-traumatic joint disorders (1 source) Pain in left knee; Translations: [Pain in left knee] Onset: 01-09-2025 Episodic Spondylosis; intervertebral disc disorders; other back problems (1 source) Spinal stenosis of lumbar region; Translations: [Other congenital malformations of spine, not associated with scoliosis] Onset: 01-13-2017 01-13-2017 Episodic Unclassified (1 source) Problem Results Test Name Value Interpretation Reference Range Facility CBC W/Diff, Automatedon 05-28 Absolute Lymph 1.87 X10 3/uL Normal 0.83-4.51 [facility] Comment on above: Performed By: #### L 506.1001, L100.0100, L500.4100, L500.4050 #### [facility] [address] [place], [address] Absolute Neut 3.9 X10 3/uL Normal 2.0-7.7 [facility] Comment on above: Performed By: #### L 506.1001, L100.0100, L500.4100, L500.4050 #### [facility] [address] [place], [address] Basophils/100 WBC (Bld) 0.9 % Normal 0-1 [facility] Comment on above: Performed By: #### L 506.1001, L100.0100, L500.4100, L500.4050 #### [facility] [address] [place], [address] Eosinophils/100 WBC (Bld) 3.5 % Normal 0-5 [facility] Comment on above: Performed By: #### L 506.1001, L100.0100, L500.4100, L500.4050 #### [facility] [address] [place], [address] Erythrocyte distribution width (RBC) [Ratio] 12.6 % Normal 11.6-14.6 [facility] Comment on above: Performed By: #### L 506.1001, L100.0100, L500.4100, L500.4050 #### [facility] [address] [place], [address] Hematocrit (Bld) [Volume fraction] 44.0 % Normal 37-47 [facility] Comment on above: Performed By: #### L 506.1001, L100.0100, L500.4100, L500.4050 #### [facility] [address] [place], [address] Hemoglobin (Bld) [Mass/Vol] 14.9 g/dL Normal 12.0-15.0 [facility] Comment on above: Performed By: #### L 506.1001, L100.0100, L500.4100, L500.4050 #### [facility] [address] [place], [address] IG% 0.100 Normal 0.0-0.9 [facility] Comment on above: Result Comment: IG% - Immature Granulocytes (promyelocytes, myelocytes and metamyelocytes) > 1% indicates that a LEFT SHIFT is Present. Performed By: #### L 506.1001, L100.0100, L500.4100, L500.4050 #### [facility] [address] [place], [address] Lymphocytes/100 WBC (Bld) 27.5 % Normal 19-41 [facility] Comment on above: Performed By: #### L 506.1001, L100.0100, L500.4100, L500.4050 #### [facility] [address] [place], [address] MCH (RBC) [Entitic mass] 30.5 pg Normal 27.0-32.0 [facility] Comment on above: Performed By: #### L 506.1001, L100.0100, L500.4100, L500.4050 #### [facility] [address] [place], [address] MCHC (RBC) [Mass/Vol] 33.9 g/dL Normal 32-36 [facility] Comment on above: Performed By: #### L 506.1001, L100.0100, L500.4100, L500.4050 #### [facility] [address] [place], [address] MCV (RBC) [Entitic vol] 90.0 fL Normal 81-99 [facility] Comment on above: Performed By: #### L 506.1001, L100.0100, L500.4100, L500.4050 #### [facility] [address] [place], [address] Monocytes/100 WBC (Bld) 10.3 % High 0-10 [facility] Comment on above: Performed By: #### L 506.1001, L100.0100, L500.4100, L500.4050 #### [facility] [address] [place], [address] Neutrophils/100 WBC (Bld) 57.7 % Normal 47-70 [facility] Comment on above: Performed By: #### L 506.1001, L100.0100, L500.4100, L500.4050 #### [facility] [address] [place], [address] Nucleated RBC (Bld) [#/Vol] 0 10*3/uL Normal 0-5 [facility] Comment on above: Performed By: #### L 506.1001, L100.0100, L500.4100, L500.4050 #### [facility] [address] [place], [address] Platelet mean volume (Bld) [Entitic vol] 10.5 fL Normal 6.2-12.0 [facility] Comment on above: Performed By: #### L 506.1001, L100.0100, L500.4100, L500.4050 #### [facility] [address] [place], [address] Platelets (Bld) [#/Vol] 224 10*3/uL Normal 150-450 [facility] Comment on above: Performed By: #### L 506.1001, L100.0100, L500.4100, L500.4050 #### [facility] [address] [place], [address] RBC (Bld) [#/Vol] 4.89 10*6/uL Normal 4.2-5.4 [facility] Comment on above: Performed By: #### L 506.1001, L100.0100, L500.4100, L500.4050 #### [facility] [address] [place], [address] RDW SD 41.1 fl Normal 35.1-43.9 [facility] Comment on above: Performed By: #### L 506.1001, L100.0100, L500.4100, L500.4050 #### [facility] [address] [place], [address] WBC (Bld) [#/Vol] 6.8 10*3/uL Normal 4.4-11.0 [facility] Comment on above: Performed By: #### L 506.1001, L100.0100, L500.4100, L500.4050 #### [facility] [address] [place], [address] [facility] 06-07-2025 Albumin [Mass/Vol] 4.2 g/dL Normal 3.4-4.8 [facility] Comment on above: Performed By: #### L 506.1001, L100.0100, L500.4100, L500.4050 #### [facility] [address] [place], [address] Albumin/Globulin [Mass ratio] 1.3 {ratio} Normal 0.9-2.4 [facility] Comment on above: Performed By: #### L 506.1001, L100.0100, L500.4100, L500.4050 #### [facility] [address] [place], [address] ALK PHOS 90 U/L Normal 35-104 [facility] Comment on above: Performed By: #### L 506.1001, L100.0100, L500.4100, L500.4050 #### [facility] [address] [place], [address] ALT [Catalytic activity/Vol] 8 U/L Normal <=34 [facility] Comment on above: Performed By: #### L 506.1001, L100.0100, L500.4100, L500.4050 #### [facility] [address] [place], [address] AST [Catalytic activity/Vol] 19 U/L Normal <=31 [facility] Comment on above: Performed By: #### L 506.1001, L100.0100, L500.4100, L500.4050 #### [facility] [address] [place], [address] Bilirubin [Mass/Vol] 0.56 mg/dL Normal 0.00-1.30 [facility] Comment on above: Performed By: #### L 506.1001, L100.0100, L500.4100, L500.4050 #### [facility] [address] [place], [address] BUN/CRE 16.7 RATIO Normal 10-20 [facility] Comment on above: Performed By: #### L 506.1001, L100.0100, L500.4100, L500.4050 #### [facility] [address] [place], [address] Calcium [Mass/Vol] 9.3 mg/dL Normal 7.6-11.0 [facility] Comment on above: Performed By: #### L 506.1001, L100.0100, L500.4100, L500.4050 #### [facility] [address] [place], [address] Chloride [Moles/Vol] 105 mmol/L Normal 98-108 [facility] Comment on above: Performed By: #### L 506.1001, L100.0100, L500.4100, L500.4050 #### [facility] [address] [place], [address] CO2 [Moles/Vol] 26.4 mmol/L Normal 21.0-32.0 [facility] Comment on above: Performed By: #### L 506.1001, L100.0100, L500.4100, L500.4050 #### [facility] [address] [place], [address] Creatinine [Mass/Vol] 0.76 mg/dL Normal 0.70-1.20 [facility] Comment on above: Performed By: #### L 506.1001, L100.0100, L500.4100, L500.4050 #### [facility] [address] [place], [address] GAP 10 Normal 5-15 [facility] Comment on above: Performed By: #### L 506.1001, L100.0100, L500.4100, L500.4050 #### [facility] [address] [place], [address] GFR/1.73 sq M.predicted among non-blacks MDRD (S/P/Bld) [Vol rate/Area] 88 mL/min/{1.73_m2} Normal >60 [facility] Comment on above: Result Comment: mL/m in/1.73m2 CKD-EPI Creatinine Equation (2020) Performed By: #### L 506.1001, L100.0100, L500.4100, L500.4050 #### [facility] [address] [place], [address] Globulin (S) [Mass/Vol] 3.2 g/dL Normal 2.2-4.2 [facility] Comment on above: Performed By: #### L 506.1001, L100.0100, L500.4100, L500.4050 #### [facility] [address] [place], [address] Glucose [Mass/Vol] 95 mg/dL Normal 70-99 [facility] Comment on above: Performed By: #### L 506.1001, L100.0100, L500.4100, L500.4050 #### [facility] [address] [place], [address] Potassium [Moles/Vol] 4.6 mmol/L Normal 3.3-5.1 [facility] Comment on above: Performed By: #### L 506.1001, L100.0100, L500.4100, L500.4050 #### [facility] [address] [place], [address] Sodium [Moles/Vol] 141 mmol/L Normal 133-145 [facility] Comment on above: Performed By: #### L 506.1001, L100.0100, L500.4100, L500.4050 #### [facility] [address] [place], [address] T PROT 7.4 g/dL Normal 5.9-8.4 [facility] Comment on above: Performed By: #### L 506.1001, L100.0100, L500.4100, L500.4050 #### [facility] [address] [place], [address] Urea nitrogen [Mass/Vol] 13 mg/dL Normal 4-19 [facility] Comment on above: Performed By: #### L 506.1001, L100.0100, L500.4100, L500.4050 #### [facility] [address] [place], [address] Lipid Profileon 06-07-2025 CHOL:HDL 4.26 Normal [facility] Comment on above: Performed By: #### L 100.0100, L500.2500, L101.9900 #### [facility] [address] [place], [address] Cholesterol [Mass/Vol] 202 mg/dL High <=200 [facility] Comment on above: Result Comment: Chol esterol level, Desirable <200 mg/dL Borderline high cholesterol 200-239 mg/dL High cholesterol >=240 mg/dL Recommendations of the NCEP Adult Treatment Panel for the following risk-cutoff thresholds for the [place] population. Performed By: #### L 100.0100, L500.2500, L101.9900 #### [facility] [address] [place], [address] Cholesterol in HDL [Mass/Vol] 47 mg/dL Normal [facility] Comment on above: Result Comment: Stacey onal Cholesterol Education Program (NCEP) guidelines: <40 mg/dL: Low HDL-cholesterol (major risk factor for CHD) >= 60 mg/dL: High HDL-cholesterol (negative risk factor for CHD) HDL-cholesterol is affected by a number of factors, e.g. smoking, exercise, hormones, sex and age. Performed By: #### L 100.0100, L500.2500, L101.9900 #### [facility] [address] [place], [address] Cholesterol in LDL [Mass/Vol] 131 mg/dL Normal [facility] Comment on above: Result Comment: Bord yylsyw=800-464 mg/dL Higher Efim=823 mg/dL or greater Performed By: #### L 100.0100, L500.2500, L101.9900 #### [facility] [address] [place], [address] Cholesterol in VLDL [Mass/Vol] 24 mg/dL Normal 5-40 [facility] Comment on above: Performed By: #### L 100.0100, L500.2500, L101.9900 #### [facility] [address] [place], [address] Triglyceride [Mass/Vol] 120 mg/dL Normal [facility] Comment on above: Result Comment: The drugs N-Acetylcysteine and Metamizole may falsely depress this assay. Normal range: <150 mg/dL Borderline High: 150-199 mg/dL High: 200-499 mg/dL Very High: >500 mg/dL Performed By: #### L 100.0100, L500.2500, L101.9900 #### [facility] [address] [place], [address] Vitamin D,25 Hydroxyon 06-07 Vitamin D 25-OH 26.2 ng/mL Low 30-100 [facility] Comment on above: Result Comment: Pratima min D Status Deficiency: <20 ng/mL (50nmol/L) Insufficiency: 20-30 ng/mL (50-75 nmol/L) Sufficiency: 30-100 ng/mL (75-250 nmol/L) Toxicity: >100 ng/mL (>250 nmol/L) Performed By: #### L 100.0100, L500.2500, L101.9900 #### [facility] [address] [place], [address] Foot min 3 Viewson 5 Foot min 3 Views [facility] [address] [place] [address] Foot min 3 Views MR#: [id number] Acct: [id number] Name: SHAUN TIRADO Rep #: [id number] : 1960 F 65 From: Sandor Muller MD PCP: NIRMAL Diaz Status: REG CLI Study: Foot min 3 Views Date of Exam: 05/27/25 Exam# [id number] Ordering Dr: Olivia Reynolds PROCEDURE: FOOT MIN 3 VIEWS 05/27/2025 REASON FOR EXAM: HALLAX VALGUS DEFORMITY,NEW PAIN TECHNIQUE: FOOT MIN 3 VIEWS COMPARISON: None FINDINGS: No displaced fracture. There is hallux valgus with a 1st metatarsophalangeal angle of 30 degrees. There is osteophyte formation and joint space narrowing which is most pronounced at the 1st metatarsophalangeal joint. Accessory navicular bone. Plantar and Achilles heel spurs. RAD/Foot min 3 Views IMPRESSION: 1. Hallux valgus. 2. Moderate osteoarthritis throughout the foot, worst at the 1st metatarsophalangeal joint. Reading Location: [id number] CC: NIRMAL Reynolds Route Driver Salesperson: Signed Normal [facility] Basic Metabolic Profile (BMP )on 12-17-2024 BUN/CRE 13.1 RATIO Normal - [facility] Comment on above: Performed By: #### L 100.0100, L500.2500, L101.9900 #### [facility] [address] [facility] [place], [address] CA,Total 9.3 mg/dL Normal 8.5-10.1 [facility] Comment on above: Performed By: #### L 100.0100, L500.2500, L101.9900 #### [facility] [address] [place], [address] Chloride [Moles/Vol] 108 mmol/L High 98-107 [facility] Comment on above: Performed By: #### L 100.0100, L500.2500, L101.9900 #### [facility] [address] [place], [address] CO2 [Moles/Vol] 25.0 mmol/L Normal 21.0-32.0 [facility] Comment on above: Performed By: #### L 100.0100, L500.2500, L101.9900 #### [facility] [address] [place], [address] Creatinine [Mass/Vol] 0.77 mg/dL Normal 0.55-1.02 [facility] Comment on above: Result Comment: The validity of the calculated GFR GFRAA in patients over 70 years has not been determined. Clinical correlation is essential. Performed By: #### L 100.0100, L500.2500, L101.9900 #### [facility] [address] [place], [address] ECRCL 77.65 ml/min Normal [facility] Comment on above: Performed By: #### L 100.0100, L500.2500, L101.9900 #### [facility] [address] [place], [address] EST GFR - AA 97 mL/min Normal >60 [facility] Comment on above: Result Comment: Afri can French GFR Calc Performed By: #### L 100.0100, L500.2500, L101.9900 #### [facility] [address] [place], [address] GAP 6 Normal 5-15 [facility] Comment on above: Performed By: #### L 100.0100, L500.2500, L101.9900 #### [facility] [address] [place], [address] GFR/1.73 sq M.predicted among non-blacks MDRD (S/P/Bld) [Vol rate/Area] 81 mL/min/{1.73_m2} Normal >60 [facility] Comment on above: Result Comment: Non- GFR Calc Performed By: #### L 100.0100, L500.2500, L101.9900 #### [facility] [address] [place], [address] Glucose [Mass/Vol] 102 mg/dL Normal 74-106 [facility] Comment on above: Result Comment: Fast ing Glucose result from 100 to 125 mg/dL suggests IMPAIRED HOMEOSTASIS per A.D.A. criteria. Performed By: #### L 100.0100, L500.2500, L101.9900 #### [facility] [address] [place], [address] Potassium [Moles/Vol] 3.6 mmol/L Normal 3.5-5.1 [facility] Comment on above: Performed By: #### L 100.0100, L500.2500, L101.9900 #### [facility] [address] [place], [address] Sodium [Moles/Vol] 140 mmol/L Normal 136-145 [facility] Comment on above: Performed By: #### L 100.0100, L500.2500, L101.9900 #### [facility] [address] [place], [address] Urea nitrogen [Mass/Vol] 10 mg/dL Normal 7-18 [facility] Comment on above: Performed By: #### L 100.0100, L500.2500, L101.9900 #### [facility] [address] [place], [address] CBC W/Diff, Automatedon 11-29 0 Absolute Lymph 1.80 X10 3/uL Normal 0.83-4.51 [facility] Comment on above: Performed By: #### L 100.0100, L500.2500, L101.9900 #### [facility] [address] [place], [address] Absolute Neut 6.9 X10 3/uL Normal 2.0-7.7 [facility] Comment on above: Performed By: #### L 100.0100, L500.2500, L101.9900 #### [facility] [address] [place], [address] Basophils/100 WBC (Bld) 0.5 % Normal 0-1 [facility] Comment on above: Performed By: #### L 100.0100, L500.2500, L101.9900 #### [facility] [address] [place], [address] Eosinophils/100 WBC (Bld) 0.7 % Normal 0-5 [facility] Comment on above: Performed By: #### L 100.0100, L500.2500, L101.9900 #### [facility] [address] [place], [address] Erythrocyte distribution width (RBC) [Ratio] 12.8 % Normal 11.6-14.6 [facility] Comment on above: Performed By: #### L 100.0100, L500.2500, L101.9900 #### [facility] [address] [place], [address] Hematocrit (Bld) [Volume fraction] 40.3 % Normal 37-47 [facility] Comment on above: Performed By: #### L 100.0100, L500.2500, L101.9900 #### [facility] [address] [place], [address] Hemoglobin (Bld) [Mass/Vol] 13.2 g/dL Normal 12.0-15.0 [facility] Comment on above: Performed By: #### L 100.0100, L500.2500, L101.9900 #### [facility] [address] [place], [address] IG% 0.400 Normal 0.0-0.9 [facility] Comment on above: Result Comment: IG% - Immature Granulocytes (promyelocytes, myelocytes and metamyelocytes) > 1% indicates that a LEFT SHIFT is Present. Performed By: #### L 100.0100, L500.2500, L101.9900 #### [facility] [address] [place], [address] Lymphocytes/100 WBC (Bld) 18.1 % Low 19-41 [facility] Comment on above: Performed By: #### L 100.0100, L500.2500, L101.9900 #### [facility] [address] [place], [address] MCH (RBC) [Entitic mass] 29.9 pg Normal 27.0-32.0 [facility] Comment on above: Performed By: #### L 100.0100, L500.2500, L101.9900 #### [facility] [address] [place], [address] MCHC (RBC) [Mass/Vol] 32.8 g/dL Normal 32-36 [facility] Comment on above: Performed By: #### L 100.0100, L500.2500, L101.9900 #### [facility] [address] [place], [address] MCV (RBC) [Entitic vol] 91.4 fL Normal 81-99 [facility] Comment on above: Performed By: #### L 100.0100, L500.2500, L101.9900 #### [facility] [address] [place], [address] Monocytes/100 WBC (Bld) 10.7 % High 0-10 [facility] Comment on above: Performed By: #### L 100.0100, L500.2500, L101.9900 #### [facility] [address] [place], [address] Neutrophils/100 WBC (Bld) 69.6 % Normal 47-70 [facility] Comment on above: Performed By: #### L 100.0100, L500.2500, L101.9900 #### [facility] [address] [place], [address] Nucleated RBC (Bld) [#/Vol] 0 10*3/uL Normal 0-5 [facility] Comment on above: Performed By: #### L 100.0100, L500.2500, L101.9900 #### [facility] [address] [place], [address] Platelet mean volume (Bld) [Entitic vol] 10.1 fL Normal 6.2-12.0 [facility] Comment on above: Performed By: #### L 100.0100, L500.2500, L101.9900 #### [facility] [address] [place], [address] Platelets (Bld) [#/Vol] 241 10*3/uL Normal 150-450 [facility] Comment on above: Performed By: #### L 100.0100, L500.2500, L101.9900 #### [facility] [address] [place], [address] RBC (Bld) [#/Vol] 4.41 10*6/uL Normal 4.2-5.4 [facility] Comment on above: Performed By: #### L 100.0100, L500.2500, L101.9900 #### [facility] [address] [place], [address] RDW SD 42.5 fl Normal 35.1-43.9 [facility] Comment on above: Performed By: #### L 100.0100, L500.2500, L101.9900 #### [facility] [address] [place], [address] WBC (Bld) [#/Vol] 10.0 10*3/uL Normal 4.4-11.0 [facility] Comment on above: Performed By: #### L 100.0100, L500.2500, L101.9900 #### [facility] [address] [place], [address] Chest PA and Lateralon 12-17 Chest PA and Lateral [facility] Imaging Services [address] [place] [address] Chest PA and Lateral MR#: [id number] Acct: [id number] Name: SHAUN TIRADO Rep #: [id number] : 1960 F 64 From: Stoney zurita MD PCP: Olivia Reynolds NP-C Status: [facility] ER Study: Chest PA and Lateral Date of Exam: 12/17/24 Exam# [id number] Ordering Dr: Holger Gonzalez [place] [id number] STUDY: X-RAY CHEST REASON FOR EXAM: Female, 64 years old. Fever TECHNIQUE: PA and lateral views of the chest. COMPARISON: Comparison is made with prior study dated April 19, 2021. FINDINGS: Pectus excavatum. Stable mild increased markings at the lung bases is however basilar scarring. There is no demonstrated pleural abnormality. Normal size heart. Normal mediastinum and mauricio. Normal visualized pulmonary arteries. There is atherosclerotic tortuosity of the aortic arch and descending thoracic aorta. There are diffuse degenerative changes of the visualized thoracic spine. Normal visualized ribs, clavicles, and shoulders. There is no demonstrated abnormality of the visualized soft tissue structures of the upper abdomen. RAD/Chest PA and Lateral IMPRESSION: Mild scarring Electronically Signed: Stoney Lawton MD at 10:28 EST Reading Location ID and State: [facility] / [place] , Service support , CC: NIRMAL Reynolds; Dr. Holger Gonzalez MD Route Driver Salesperson: Signed Normal [facility] Emergency Department Summary on 12-17-2024 Emergency Department Summary [facility] Medical Records Department [address] [place] [address] Emergency Department Summary 12/17/24 MR#: [id number] Acct: [id number] Name: SHAUN TIRADO Rep #: [id number] : 1960 64 From: Holger Gonzalez MD PCP: NIRMAL Diaz Status:REG ER Location: ED HPI History of Present Illness Chief Complaint: Lower Extremity Injury Informant: patient Onset/Context/Timing Onset: Days Context: Gradual Onset Timing: Continuous Current Severity: Mild Maximum Severity: Mild Narrative Narrative: 64-year-old female history of prior bilateral knee replacements years ago. Patient states she had oral surgery done on Tuesday for her right upper molar. She was given IV antibiotics and placed on antibiotics currently orally. Patient states after her surgery she started having low-grade fevers 99.7 200.2. Was not feeling well but was concerned because she had pain in both knees. She denies any redness or swelling to her knees. Denies any injuries. She was concerned and wanted to be evaluated. She denies any significant cough. No dysuria. No abdominal pain. No trouble breathing. No rashes. No sore throat. Prior similar symptoms: No Recent Illness/Hospitalizatio n: [facility] Medical History Anxiety and depression Home Medications ???Medication ???Instructions ???Recorded ???Last Taken ???Type sertraline 100 mg tablet (Zoloft) 100 mg PO DAILY 03/03/21 Unknown History calcium 260 mg (phos,tribasic)-D3 tab PO 07/05/22 Unknown History 25 mcg-herbal 50 mg chewable tablet (Alive Calcium-Vitamin D3) clobetasol 0.05 % topical ointment 1 applic topical .COMPLEX #15 grams 07/05/22 Unknown Rx mecobalamin (vitamin B12) 5,000 mcg PO 07/05/22 Unknown History mcg disintegrating tablet estradiol 0.01% (0.1 mg/gram) See Rx Instructions vaginal 08/05/22 Unknown Rx vaginal cream .COMPLEX #42.5 grams Allergy/AdvReac Type Severity Reaction Status Date / Time Sulfa (Sulfonamide Allergy Intermediate rash Verified 12/17/24 08:47 Antibiotics) Family History Father Diabetes Heart disease Surgical History S/P section Total knee replacement status Previous back surgery Social History Smoking Status: Former smoker alcohol intake: never substance use type: does not use caffeine: Yes what type of physical activity do you participate in: walking frequency: 3-4 times per week seatbelt use: always do you feel safe at home: Yes additional social history: 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 Constitutional Constitutional ED: Reports fever(s) Eyes Eyes: Denies blurry vision ENT ENT ED: Denies ear pain Cardiovascular Cardiovascular: Denies chest pain Respiratory/Chest Respiratory/Chest: Denies cough or dyspnea Gastrointestinal Gastrointestinal: Denies abdominal pain, constipation, diarrhea, melena, nausea or vomiting Genitourinary Genitourinary ED: Denies dysuria or hematuria Musculoskeletal Musculoskeletal: Denies arthralgias or back pain Integumentary Denies abscess or Abrasions Neurologic Neurologic: Denies headache(s) or paresthesias Psychiatric Psychiatric: Reports anxiety Endocrine Endocrinology: Denies cold intolerance Hematologic/Lymphatic Hematologic/Lymphatic: Reports none Allergic/Immunologic Allergic/Immunologic ED: Denies mouth swelling, tongue swelling or urticaria EXAM Physical Exam Narrative Exam Narrative: Well-appearing 64-year-old female. Vital signs are stable. She does not appear septic or toxic. She is no distress. HEENT exam pupils round react light. Moist mucous membranes. No trouble swallowing or breathing. No erythema or exudate of posterior pharynx. Her right upper second last molar there is been recent dental surgery. Sutures in place. There is mild swelling. There is no abscess. It looks like it is healing nicely. Neck nontender no lymphadenopathy. Back nontender no rash. Lungs clear to auscultation bilaterally. Heart regular rhythm rate about 95 no murmur. Chest wall ribs nontender. Abdomen soft nontender. Patient moving all 4 extremities. Exam of her knees she has normal range of motion of both knees. Well-healed prior surgical scars. No redness. No warmth. No signs of septic joint. No swelling or effusion. She can flex and extend either knee. Skin appears normal. She is able to flex extend both hips, knees and ankles. Normal strength. There is no rashes. No inguinal lymphadenopathy. Upper extremities are unremarkable. She has normal strength and range of motion. Neurologically she is awake and alert. Con (more content not included)... Normal [facility] Erythrocyte Sed Rateon 12-17 SED RATE 29 mm/hr Normal 0-30 [facility] Comment on above: Performed By: #### L 100.0100, L500.2500, L101.9900 #### [facility] [address] [place], [address] M100.678on 12-17-2024 M100.678 Pending SARS-CoV-2 (COVID 19) Negative INFLUENZA A Negative INFLUENZA B Negative RSV PCR Negative Normal [facility] Comment on above: Performed By: #### L 400.0001, M100.678 #### [facility] [address] [place], [address] Urinalysis, Completeon 12-17 BACTERIA 1+ /hpf Normal None Seen [facility] Comment on above: Order Comment: COLLE CTOR TO SPECIFY Performed By: #### L 400.0001, M100.678 #### [facility] [address] [place], [address] EPI,SQUAMOUS 0-5 SEEN Normal 5-10 [facility] Comment on above: Order Comment: COLLE CTOR TO SPECIFY Performed By: #### L 400.0001, M100.678 #### [facility] [address] [place], [address] WBC 0-5 SEEN Normal 0-5 [facility] Comment on above: Order Comment: COLLE CTOR TO SPECIFY Performed By: #### L 400.0001, M100.678 #### [facility] [address] [place], [address] Mucus Ql (Urine sed) 0 SEEN Normal [facility] Comment on above: Order Comment: COLLE CTOR TO SPECIFY Performed By: #### L 400.0001, M100.678 #### [facility] [address] [place], [address] RBC 0 SEEN Normal 0-5 [facility] Comment on above: Order Comment: COLLE CTOR TO SPECIFY Performed By: #### L 400.0001, M100.678 #### [facility] [address] [place], [address] Absolute lymphocyte countOrd ered By: Olivia Reynolds on 05-23-2023 Lymphocytes Auto (Unsp spec) [#/Vol] 1.70 10*3/uL 0.83-4.51 [facility] Basophil percentageOrdered B y: Olivia Reynolds on 05-23-2023 Basophils/100 WBC (Bld) 1.0 % 0-1 [facility] Bilirubin [Mass/Vol] 0.50 mg/dL 0.20-1.00 [facility] Comment on above: For patients on eltr ombopag therapy, use of Dimension [place] TBIL is not recommended. Chloride [Moles/Vol] 110 mmol/L 98-107 [facility] Cholesterol [Mass/Vol] 213 mg/dL <200 [facility] Comment on above: <200 mg/dL Desirable 200-240 mg/dL Borderline >240 mg/dL High Risk Eosinophils/100 WBC (Bld) 5.4 % 0-5 [facility] Glucose [Mass/Vol] 89 mg/dL 74-106 [facility] Neutrophils (Bld) [#/Vol] 3.3 10*3/uL 2.0-7.7 [facility] Neutrophils/100 WBC (Bld) 54.0 % 47-70 [facility] Potassium [Moles/Vol] 4.1 mmol/L 3.5-5.1 [facility] Protein [Mass/Vol] 7.5 g/dL 6.4-8.2 [facility] Sodium [Moles/Vol] 142 mmol/L 136-145 [facility] Triglyceride [Mass/Vol] 141 mg/dL <199 [facility] Comment on above: The drugs N-Acetylcy steine and Metamizole may falsely depress this assay.Serum Triglycerides Reference Interval Normal <150 mg/dL Borderline high 150 - 199 mg/dL High 200 - 499 mg/dL Very High > or = 500 mg/dL WBC (Bld) [#/Vol] 6.1 10*3/uL 4.4-11.0 [facility] Blood erythrocytes count (nu mber/volume)Ordered By: Olivia Reynolds on 05-23-2023 RBC (Bld) [#/Vol] 4.90 10*6/uL 4.2-5.4 [facility] Blood hemoglobin measurement (mass/volume)Ordered By: Olivia Reynolds on 05-23-2023 Hemoglobin (Bld) [Mass/Vol] 14.6 g/dL 12.0-15.0 [facility] Blood lymphocytes/100 leukoc ytesOrdered By: Olivia Reynolds on 05-23-2023 Lymphocytes/100 WBC (Bld) 27.8 % 19-41 [facility] Blood monocytes/100 leukocyt esOrdered By: Olivia Reynolds on 05-23-2023 Monocytes/100 WBC (Bld) 11.6 % 0-10 [facility] Blood platelet mean volumeOr dered By: Olivia Reynolds on 05-23-2023 Platelet mean volume (Bld) [Entitic vol] 9.9 fL 6.2-12.0 [facility] Determination of erythrocyte mean corpuscular volume (MCV)Ordered By: lOivia Reynolds on 05-23-2023 MCV (RBC) [Entitic vol] 91.8 fL 81-99 [facility] Hematocrit Auto (Bld) [Volum e fraction]Ordered By: Olivia Reynolds on 05-23-2023 Hematocrit (Bld) [Volume fraction] 45.0 % 37-47 [facility] Iron measurement (mass/mass) Ordered By: Olivia Reynolds on 05-23-2023 Iron (Unsp spec) [Mass/Mass] 98 ug/dL 50-170 [facility] - Chemistry and C hemistry - challengeOrdered By: Olivia Reynolds on 05-23-2023 ALP [Catalytic activity/Vol] 84 U/L 45-117 [facility] ALT [Catalytic activity/Vol] 14 U/L 13-56 [facility] CO2 [Moles/Vol] 26.0 mmol/L 21.0-32.0 [facility] Cobalamin (Vitamin B12) [Mass/Vol] 400 pg/mL 211-911 [facility] Free T4 [Mass/Vol] 0.93 ng/dL 0.76-1.46 [facility] Globulin (S) [Mass/Vol] 4.0 g/dL 2.2-4.2 [facility] Urea nitrogen/Creatinine [Mass ratio] 19.4 mg/mg 10-20 [facility] - Hematology and Cell countsOrdered By: Oliviawinsome Reynolds on 05-23-2023 Erythrocyte distribution width (RBC) [Entitic vol] 42.8 fL 35.1-43.9 [facility] Erythrocyte distribution width (RBC) [Ratio] 12.7 % 11.6-14.6 [facility] Immature granulocytes/100 WBC (Bld) 0.200 % 0.0-0.9 [facility] Comment on above: IG% - Immature Granu locytes (promyelocytes, myelocytes and metamyelocytes) > 1% indicates that a LEFT SHIFT is Present. MCH (RBC) [Entitic mass] 29.8 pg 27.0-32.0 [facility] Nucleated RBC/100 WBC (Bld) [Ratio] 0 % 0-5 [facility] MCHC Auto (RBC) [Mass/Vol]Or dered By: Olivia Reynolds on 05-23-2023 MCHC (RBC) [Mass/Vol] 32.4 g/dL 32-36 [facility] No Panel InformationOrdered By: Olivia Reynolds on 05-23-2023 Estimated GFR (MDRD) Amer 97 mL/min >60 [facility] Comment on above: GFR Calc Estimated GFR (MDRD) Non-Af Amer 80 mL/min >60 [facility] Comment on above: Non- GFR Calc Thyroid Stimulating Hormone (TSH) 1.51 uIU/mL 0.358-3.74 [facility] Vitamin D 25-Hydroxy 28.3 ng/mL [facility] Comment on above: Vitamin D 25(OH) Sta tus Range Deficiency <20 ng/mL (50nmol/L) Insufficiency 20 - 30 ng/mL (50 - 75 nmol/L) Sufficiency 30 - 100 ng/mL (75 - 250 nmol/L) Toxicity >100 ng/mL (>250 nmol/L) Platelets bldOrdered By: Vito Reynolds on 05-23-2023 Platelets (Bld) [#/Vol] 235 10*3/uL 150-450 [facility] Serum or plasma albumin dorian urement (mass/volume)Ordered By: Olivia Reynolds on 05-23-2023 Albumin [Mass/Vol] 3.5 g/dL 3.2-5.0 [facility] Serum or plasma albumin/glob ulin mass ratioOrdered By: Olivia Reynolds on 05-23-2023 Albumin/Globulin [Mass ratio] 0.9 {ratio} 0.9-2.4 [facility] Serum or plasma calcium dorian urement (mass/volume)Ordered By: Olivia Reynolds on 05-23-2023 Calcium [Mass/Vol] 8.9 mg/dL 8.5-10.1 [facility] Serum or plasma cholesterol in HDL measurement (mass/volume)Ordered By: Olivia Reynolds on 05-23-2023 Cholesterol in HDL [Mass/Vol] 53 mg/dL >40 [facility] Comment on above: The drugs N-Acetylcy steine and Metamizole may falsely depress this assay. Reference Range HDL <40 mg/dL Low HDL Cholesterol HDL >or= 60 mg/dL High HDL Cholesterol Serum or plasma cholesterol in VLDL measurement (mass/volume)Ordered By: Olivia Reynolds on 05-23-2023 Cholesterol in VLDL [Mass/Vol] 28 mg/dL 5-40 [facility] Serum or plasma creatinine m easurement (mass/volume)Ordered By: Olivia Reynolds on 05-23-2023 Creatinine [Mass/Vol] 0.77 mg/dL 0.55-1.02 [facility] Comment on above: The validity of the calculated GFR & GFRAA in patients over 70 years has not been determined. Clinical correlation is essential. Serum or plasma ferritin damon surement (mass/volume)Ordered By: Olivia Reynolds on 05-23-2023 Ferritin [Mass/Vol] 161 ng/mL 8-252 [facility] Serum or plasma low density lipoprotein (LDL) cholesterol measurement (mass/volume)Ordered By: Olivia Reynolds on 05-23-2023 Cholesterol in LDL [Mass/Vol] 132 mg/dL 0-130 [facility] Serum or plasma urea nitroge n measurement (mass/volume)Ordered By: Olivia Reynolds on 05-23-2023 Urea nitrogen [Mass/Vol] 15 mg/dL 7-18 [facility] Thin prep Papanicolaou smear with manual screeningOrdered By: De Beque Rodolfo on 05-23-2023 Thin prep Papanicolaou smear with manual screening 14 U/L 15-37 [facility] Thin prep Papanicolaou smear with manual screening 6 5-[address] [facility] [address] KNEE W/O CONTRAST RIGHTon 05-09-2019 CT KNEE W/O CONTRAST RIGHT ORIGINAL CT KNEE W/O CONTRAST RIGHT This exam was performed according to our departmental dose optimization program, and includes the following measures where applicable: automated exposure control, adjustment of the mAs and/or kVp according to patient size and/or exam, and an iterative reconstruction algorithm. CLINICAL STATEMENT: UNILATERAL POST TRAUMATIC OSTEOARTHRITIS RIGHT KNEE COMPARISON: None FINDINGS: Images were acquired at the RIGHT hip, knee, and ankle. Sagittal and coronal reformations of the RIGHT knee were performed. There is tricompartmental joint space narrowing and osteophyte formation. Joint space narrowing is most severe in the medial tibiofemoral compartment. There is a suprapatellar effusion and small popliteal cyst. There are no acute abnormalities of the hip or ankle. IMPRESSION: Pronounced degenerative change RIGHT knee. Interpreted By: Chela Miles MD Preliminary Report By: Chela Miles MD Electronically Signed By: Chela Miles MD Dictated Date: 05/09/2019 1:49:27 PM Prelim Date: 05/09/2019 1:49:27 PM Sign Date: 05/09/2019 2:08:55 PM Normal [facility] ([place]) Clinical Summary: HMSPatient IDon 08-01-2018 OOP Invalid Interpretation Code [facility] Work Phone: Office Visit: Postop - subse quent visit, Rm: 1on 08-01-2018 NEGATED: Highlighted rowProtein mass conc Done Invalid Interpretation Code [facility] Work Phone: Vital Signs Date Time Vital Sign Value Performing Clinician Facility 06-09-2023 15:22-0400 Body height 160.02 cm [facility] NEGATED: Highlighted [id number] 10:35-0400 BMI (Body Mass Index) 34.13 kg/m2 [facility] Work Phone: NEGATED: Highlighted [id number] 10:35-0400 BP Diastolic 98 mm[Hg] [facility] Work Phone: NEGATED: Highlighted [id number] 10:35-0400 BP Systolic 149 mm[Hg] [facility] Work Phone: NEGATED: Highlighted [id number] 10:35-0400 BP Systolic 150 mm[Hg] [facility] Work Phone: NEGATED: Highlighted [id number] 10:35-0400 Height 160.02 cm [facility] Work Phone: NEGATED: Highlighted [id number] 10:35-0400 Height 160 cm [facility] Work Phone: NEGATED: Highlighted [id number] 10:35-0400 Pulse (Heart Rate) 80 /min [facility] Work Phone: NEGATED: Highlighted [id number] 10:35-0400 Weight 87.09 kg [facility] Work Phone: NEGATED: Highlighted [id number] 10:35-9289 Weight 87 kg Chela Le[facility] Work Phone: Encounters Encounter Date Encounter Type Care Provider Facility Start: 06-07-2025 ambulatory [facility] Facility:[facility] Start: 05-27-2025 End: 05-27-2025 ambulatory Olivia Hubbardgar [facility] Work Phone: -Radiology [facility] Start: 05-27-2025 End: 05-27-2025 Patient encounter procedure Olivia Reynolds [facility] -Radiology [facility] Work Phone: Start: 05-27-2025 End: 05-27-2025 ambulatory [facility] Facility:[facility] Start: 12-17-2024 End: 12-17-2024 Emergency department patient visit [facility] Facility:[facility] Start: 08-03-2023 End: 08-03-2023 ambulatory [facility] Work Phone: Start: 08-03-2023 End: 08-03-2023 Patient encounter procedure [facility] Work Phone: Start: 07-26-2023 End: 07-26-2023 ambulatory [facility] Work Phone: Start: 07-26-2023 End: 07-26-2023 Patient encounter procedure [facility] Work Phone: Start: 06-09-2023 End: 06-09-2023 ambulatory [facility] Work Phone: Start: 06-09-2023 End: 06-09-2023 Patient encounter procedure [facility] Work Phone: Start: 05-23-2023 End: 05-23-2023 ambulatory [facility] Work Phone: Start: 05-23-2023 End: 05-23-2023 Patient encounter procedure [facility] Start: 08-01-2018 End: 08-01-2018 Patient encounter procedure Carlo Soni DO Work Phone: [facility] Work Phone: Procedures Date Procedure Procedure Detail Performing Clinician Start: 05-27-2025 X-ray of foot, three or more views Olivia Reynolds [employer] Work Phone: Start: 08-03-2023 Ultrasonography of breast Start: 07-26-2023 Screening mammography Start: 06-09-2023 Dual energy X-ray absorptiometry Start: 08-01-2018 End: 08-01-2018 Blood pressure outside of normal parameters - follow-up not documented Carlo Quigley Zachariah DO Work Phone: Start: 08-01-2018 End: 08-01-2018 BMI documented as above normal parameters - follow-up documented Carlo Dann Zachariah KONG Work Phone: Start: 08-01-2018 End: 08-01-2018 Current medications documented Carlo aDnn Zachariah DO Work Phone: Start: 08-01-2018 End: 08-01-2018 Pain assessment documented as positive - follow-up documented Carlo Dann Zachariah KONG Work Phone: Start: 08-01-2018 End: 08-01-2018 Tobacco non-user Carlo Soni DO Work Phone: History of operative procedure on knee History of bilateral knee replacement Olivia Reynolds [employer] Work Phone: Plan of Treatment Date Care Activity Detail Author Start: 08-01-2018 End: 08-01-2018 Radex spine lumbosacral minimum 4 views XR LUMBAR [id number] FLEX/EX [facility] Work Phone: Start: 08-01-2018 End: 08-01-2018 Appointment Appointment [facility] Work Phone: Patient Education \[email or web address]\[email or web address] PtEducati on\[email or web address] [facility] Work Phone: Immunizations Immunization Date Immunization Notes Care Provider Fa cility 02-12-2021 Covid (Pfizer) [facility] 01-22-2021 Covid (Pfizer) [facility] 08-28-2020 Influenza virus vaccine [facility] No information available. Chela Clark [facility] Work Phone: Payers Date Payer Category Payer Self-pay [id number] 2013 Unknown [id number] Unknown [id number] Unknown [id number] Unknown [id number] Social History Date Type Detail Facility Start: 08-01-2018 End: 08-01-2018 Assertion Unknown if ever smoked [facility] Work Phone: Start: 1960 Sex Assigned At Female [facility] Start: 12-17-2024 Tobacco smoking stat us NHIS Ex-smoker (finding) [facility] NEGATED: Highlighted rowStart: 08-01-2018 End: 08-01-2018 Employment detail OCCUPATION#[employer] [facility] Work Phone: Radiology Diagnostic study note 05-27-2025 Note Date & Type Note Facility 05-27-2025 Radiology Diagnostic study note [facility] Services [address] [place] [address] Foot min 3 Views MR#: [id number] Acct: [id number] Name: SHAUN TIRADO Rep #: [id number] : 1960 F 65 From: Teresa Muller MD PCP: NIRMAL Diaz Status: REG CLI Study:Foot min 3 Views Date of Exam: Exam# [id number] Ordering Dr: Ra oleksandr Reynolds PROCEDURE: FOOT MIN 3 VIEWS 05/27/2025 REASON FOR EXAM: HALLAX VALGUS DEFORMITY,NEW PAIN TECHNIQUE: FOOT MIN 3 VIEWS COMPARISON: None FINDINGS: No displaced fracture. There is hallux valgus with a 1st metatarsophalangeal angle of 30 degrees. There is osteophyte formation and joint space narrowing which is most pronounced at the 1st metatarsophalangeal joint. Accessory navicular bone. Plantar and Achilles heel spurs. RAD/Foot min 3 Views IMPRESSION: 1. Hallux valgus. 2. Moderate osteoarthritis throughout the foot, worst at the 1st metatarsophalangeal joint. Reading Location: [id number] CC: NIRMAL Reynolds ~ Route Driver Salesperson: Signed [facility] Evaluation note Note Date & Type Note Facility Evaluation note No assessment information availa ble [facility] Work Phone: Reason for referral (narrative) Note Date & Type Note Facility Reason for referral (narrative) No reason for referral information available [facility] Work Phone: Instructions Instruction Description Start Date Patient advised to follow-up with Primary Care Physician for BMI management. Advance Directives No Advanced Directives Records Found Advance Directive Response Recorded Date/ Time Living Will No May 22, 2021 4:28pm Power of Mutuel Teller No May 22 4:28pm Assessments There may be information available, but it has not been provided by the sender. Review of System There may be information available, but it has not been provided by the sender. Family History No Family History Records Found Relationship Condition Age at Onset Recorded Date/T ajit father Diabetes mellitus Unknown Cardiac disease Unknown Summary Purpose Chief Complaint and Reason for Visit Chief Complaint OESTEO SCREENING Chief Complaint OESTEO SCREENING SCREENING Chief Complaint OESTEO SCREENING SCREENING ABNORMAL MAMMOGRAM FINDINGS Additional Source Comments INFORMATION SOURCE (unrecogn ized section and content) DATE CREATED AUTHOR 05/12/2019 [facility] ([place]) DATE CREATED AUTHOR AUTHOR'S ORGANIZ ATION 06/07/2025 [facility] Care Teams (unrecognized sec tion and content) Team Status: Active Member Role Status Dates Dr. Marino Vital MD Family Provider Active NIRMAL Diaz Primary Care Provider Active Team Status: Inactive Member Role Status Dates NIRMAL Diaz Primary Care Provide r, Attending Provider, Referring Provider Active Team Status: Active Member Role/Relationship Status Dates Dr. Marino Vital MD Family Provider Active NIRMAL Diaz Primary Care Provider Active Team Status: Inactive Member Role/Relationship Status Dates NIRMAL Diaz Primary Care Provider Active Start: May 27, 2025 End: May 27, 2025 NIRMAL Diaz Attending Provider Active St art: May 27, 2025 End: May 27, 2025 NIRMAL Diaz Referring Provider Active St art: May 27, 2025 End: May 27, 2025 Goals (unrecognized section and content) Goals may be documented in a n alternate sectionGoals may be documented in an alternate sectionGoals may be documented in an alternate sectionGoals may be documented in an alternate sectionGoals may be documented in an alternate section FOR RECORDS PERTAINING TO PATIENTS WHO ARE OR HAVE BEEN ENROLLED IN A CHEMICAL DEPENDENCY/SUBSTANCEABUSE PROGRAM, SOME INFORMATION MAY BE OMITTED. This clinical summary was aggregated from multiple sources. Caution should be exercised in using it in the provision of clinical care. This summary normalizes information from multiple sources, and as a consequence, information in this document may materially change the coding, format and clinical context of patient data. In addition, data may be omitted in some cases. CLINICAL DECISIONS SHOULD BE BASED ON THE PRIMARY CLINICAL RECORDS. [employer] provides no warranty or guarantee of the accuracy or completeness of information in this document.
== END | disposition home or self-care (01) ==
LOC: OPBI 10:14
PROVIDERS: PCP Nurse Practitioner Family; Referring Provider Nurse Practitioner Family; Visit Provider Nurse Practitioner Family
DX: Z12.31 Encounter for screening mammogram for malignant neoplasm of breast (principal); E55.9 Vitamin D deficiency, unspecified; E78.5 Hyperlipidemia, unspecified; I10 Essential (primary) hypertension
CPT/HCPCS: 36415; 77067; 80053; 80061; 82306; 85025